=== PATIENT | female | born 1950 | race Caucasian/White ===

== ENCOUNTER 2020-03-24 13:48 | Emergency (ER) | payer OTHER, BC ==
--- OUTSIDE RECORDS SUMMARY | 2020-03-24 13:51 | XMS REPORT | Continuity of Care Document ---
:1950 Author Organization [employer] Care Team Providers Name Role Phone [employer] Unavailable Un available Problems Problem Status Onset Classification Date Comments Sourc e Date Reported Spinal stenosis, 02/10/20 06/20/2018 lumbar region 18 [place] without neurogenic claudication UNK Active 10/04/19 [facility] 18 [place] LUMBAR STENOSIS, Active 04/07/19 [facility] SPONYLOSIS, [address] [place] [address] RADICULOPAT [place] SPINAL STENOSIS Active 08/19/[place] [address] [place] [address] Spondylolisthesis, 06/20/2018 lumbar region [place] Essential (primary) 06/20/2018 hypertension [place] Hyperlipidemia, 06/20/2018 unspecified [place] Presence of 06/20/2018 unspecified [place] artificial knee joint Age-related 06/20/2018 osteoporosis [place] without current pathological fracture Postprocedural 06/20/2018 fever [place] Encounter for 06/20/2018 immunization [place] Gastro-esophageal 06/20/2018 [facility] reflux disease [place] and without esophagitis Sleep apnea, 06/20/2018 unspecified [place] Cataract (disorder) Resolved Problem 06/20/2018 [facility] Gastroesophageal Active Problem 06/20/2018 [facility] reflux disease Medic al (disorder) Center,[facility] Hyperlipidemia Active Problem 06/20/2018 [place] (disorder[facility] Hypertensive Active Problem 06/20/2018 [place] disorder, systemic M edical arterial (disorder) Center,[facility] Kidney stone Active Problem 06/20/2018 [place] (disorder[facility] Osteoporosis Active Problem 06/20/2018 [place] (disorder[facility] Sleep apnea Resolved Problem 06/20/2018 [place] [facility] SPONDYLOLISTHESIS, Active [facility] Herrera n RADICULOPATHY, Active [facility] CERVICAL [facility]ION Herm martin Medications Medication Details Route Status Patient Ordering Order Source Instructions Provider Date Acetaminophen 325 1-2 tab, PO, No Longer MG / Hydrocodone Q4-6H, PRN Active 2017 [facility] Bitartrate 10 MG Pain, X 5 day, Oral Tablet # 120 tab, 0 [[place] 10/325] Refill(s) Cyclobenzaprine 10 mg = 1 tab, No Longer hydrochloride 10 PO, TID, PRN Active 2017 [place] MG Oral Tablet for spasm, # 90 [Flexeril] tab, 0 Refill(s) Acetaminophen 325 Notes: Do not Inactive MG / Hydrocodone exceed 4gm/day 2017 [place] Bitartrate 10 MG of Oral Tablet acetaminophen. [[place] 10/325] (Same as: [place] 325/10) Morphine 2 mg, 1 mL, Inactive Route: IVP, 2017 [place] Drug form: SOLN, Q2H, Dosing Weight 84.091, kg, PRN Pain Score 7-10, Start date: 12/01/17 9:59:00 CDT, Duration: 30 day, Stop date: 12/31/17 9:58:00 CDT Fluoxetine Notes: (Same Inactive as: Prozac) 2017 [place] irbesartan Notes: (Same Inactive as:Avapro) 2017 [place] Tylenol Notes: Do not Inactive exceed 4 2017 [place] gm/day. (Same as: Tylenol) Tylenol Notes: Do not Inactive exceed 4 2017 [place] gm/day. (Same as: Tylenol) Omeprazole 20 mg, Route: Inactive PO, Drug form: 2017 [place] ECTAB, BID, Dosing Weight 84.091, kg, Start date: 11/30/17 17:00:00 CDT, Duration: 30 day, Stop date: 12/30/17 9:00:00 CDT Protonix Notes: Tablet No Longer should not be Active 2017 [place] chewed or crushed. (Same as: Protonix) Omeprazole 20 mg, Route: Inactive PO, Drug form: 2017 [place] ECTAB, BID, Dosing Weight 84.091, kg, Priority: NOW, Start date: 11/30/17 9:47:00 CDT, Duration: 30 day, Stop date: 12/30/17 9:00:00 CDT irbesartan 150 mg, Route: Inactive PO, Drug form: 2018 [place] TAB, Daily, Dosing Weight 84.091, kg, Priority: NOW, Start date: 11/30/17 9:45:00 CDT, Duration: 30 day, Stop date: 12/30/17 9:00:00 CDT atorvastatin Notes: (Same No Longer As: Lipitor) Active 2017 [place] clindamycin 600 mg, 50 mL, No Longer Route: IVPB, Active 2017 [place] Drug form: INJ, ABXQ8H, Dosing Weight 84.091, kg, Start date: 11/29/17 16:00:00 CDT, Duration: 1 day, Stop date: 11/30/17 8:00:00 CDT, ABX Indication: Surgical Prophylaxis Reglan 10 mg, Route: Inactive IV, ONCE, 2017 [place] Dosing Weight 84.091, kg, PRN Nausea, Start date: 11/29/17 13:03:00 CDT Clindamycin 600 mg, 50 mL, Inactive Route: IVPB, 2017 [place] Drug form: INJ, [id number], Dosing Weight 84.091, kg, Start date: 11/29/17 11:00:00 CDT, Duration: 1 day, Stop date: 11/30/17 3:00:00 CDT, ABX Indication: Surgical Prophylaxis Zofran Notes: (Same No Longer as: Zofran) Active 2017 [place] MEDICATION WASTE Product Size: 4 mg Product Wasted: ___ mg Acetaminophen Notes: Infuse Inactive over 15 minutes 2018 [place] Do not exceed 4gm/day of acetaminophen MEDICATION WASTE Product Size: 1000 mg Product Wasted: ___ mg Oxycodone Notes: (Same Inactive as: Roxicodone) 2018 [place] Flumazenil Notes: (Same Inactive as: Romazicon) 2018 [place] Naloxone Notes: Same as Inactive Narcan 2018 [place] Hydromorphone Notes: Same as: Inactive H Dilaudid 2018 [place] Fentanyl Notes: (Same Inactive as: Sublimaze) 2018 [place] Preservative free. Promethazine 6.25 mg, Route: Inactive IVPB, ONCE, 2018 [place] Dosing Weight 84.091, kg, PRN Nausea & Vomiting, Start date: 11/29/17 10:43:00 CDT 72 HR Scopolamine Notes: Change Inactive 0.0139 MG/HR patch every 72 2017 [facility] Transdermal Patch hours (Same as: Transderm-Scop) Meperidine Notes: (Same Inactive As: Demerol) 2018 [place] Ondansetron 4 mg, Route: Inactive IVP, ONCE, 2018 [place] Dosing Weight 84.091, kg, PRN Nausea & Vomiting, Start date: 11/29/17 10:43:00 CDT Diphenhydramine Notes: (Same Inactive as: Benadryl) 2017 [place] Albuterol 0.83 Notes: SEE RT Inactive MG/ML Inhalant DOCUMENTATION 2018 [place] Solution (Same as: Proventil) Morphine Notes: Dose: No Longer Delay: Active 2017 [place] Basal rate: 4hr limit: (Same as:Rapi-Ject) Naloxone Notes: Same as No Longer Narcan Active 2017 [place] glycopyrrolate Route: IV, Drug Inactive (ANES) form: INJ, 2017 [place] ONCE, Stop date: 11/29/17 10:32:00 CDT neostigmine Route: IV, Drug Inactive (ANES) form: INJ, 2017 [place] ONCE, Stop date: 11/29/17 10:32:00 CDT clindamycin Route: IV, Drug Inactive (ANES) form: INJ, 2017 [place] ONCE, Stop date: 11/29/17 8:52:00 CDT phenylephrine Route: IV, Drug Inactive H (ANES) form: INJ, 2017 [place] ONCE, Stop date: 11/29/17 8:32:00 CDT ePHEDrine (ANES) Route: IV, Drug Inactive form: INJ, 2017 [place] ONCE, Stop date: 11/29/17 8:32:00 CDT dexamethasone Route: IV, Drug Inactive H (ANES) form: INJ, 2017 [place] ONCE, Stop date: 11/29/17 8:27:00 CDT acetaminophen Route: IV, Drug Inactive H (ANES) form: INJ, 2017 [place] ONCE, Stop date: 11/29/17 8:27:00 CDT Calcium Chloride 1,000 mL, Rate: Inactive 0.0014 MEQ/ML / 25 ml/hr, 2017 [place] Potassium Infuse over: 40 Chloride 0.004 hr, Route: IV, MEQ/ML / Sodium Dosing Weight Chloride 0.103 84.091 kg, MEQ/ML / Sodium Total Volume: Lactate 0.028 1,000, Start MEQ/ML Injectable date: 11/29/17 Solution 8:25:00 CDT, Duration: 30 day, Stop date: 12/29/17 8:24:00 CDT, 1.97, m2 rocuronium (ANES) Route: IV, Drug Inactive 11/29 form: INJ, 2017 ONCE, Stop date: 11/29/17 8:22:00 CDT ondansetron Route: IV, Drug Inactive MH (ANES) form: INJ, 2017 [place] ONCE, Stop date: 11/29/17 8:17:00 CDT fentaNYL (ANES) Route: IV, Drug Inactive form: INJ, 2017 [place] ONCE, Stop date: 11/29/17 8:13:00 CDT succinylcholine Route: IV, Drug Inactive MH (ANES) form: INJ, 2017 [place] ONCE, Stop date: 11/29/17 8:13:00 CDT lidocaine (ANES) Route: IV, Drug Inactive form: INJ, 2017 [place] ONCE, Stop date: 11/29/17 8:13:00 CDT propofol (ANES) Route: IV, Drug Inactive form: INJ, 2017 [place] ONCE, Stop date: 11/29/17 8:13:00 CDT midazolam (ANES) Route: IV, Drug Inactive form: SOLN, 2018 [place] ONCE, Stop date: 11/29/17 8:02:00 CDT Lactated Ringers Route: IV, Inactive Injection IV Total Volume: 2018 [place] and (ANES) 1000 mL 1,000, Start date: 11/29/17 7:30:00 CDT, Stop date: 11/29/17 8:30:00 CDT ceFAZolin + Notes: (Same Inactive Sodium Chloride As: Ancef, 2017 [place] and 0.9% IV 100 mL Kefzol) MEDICATION WASTE Product Size: 1000 mg Product Wasted: ___ mg folic acid 0.8 mg 0.8 mg = 1 tab, Active oral tablet PO, Daily 2017 [place] atorvastatin 10 10 mg = 1 tab, Active H mg oral tablet PO, Daily 2017 [place] ketOROLAC 30 30 mg, Route: Inactive [place] mg/mL injectable IVP, Drug form: 2016 Medical solution INJ, ONCE, Center Dosing Weight 84.091, kg, 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, 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 Ondansetron Notes: (Same No Longer [place] as: Zofran) Active 2017 Medical MEDICATION Center WASTE Product Size: 4 mg Product Wasted: ___ mg Hydromorphone Notes: Same as: No Longer [place] Dilaudid Active [address] [place] [address] Notes: Infuse Inactive [place] over 15 minutes 2017 Medical Do not exceed Center 4gm/day of acetaminophen MEDICATION WASTE Product Size: 1000 mg Product Wasted: ___ mg vancomycin + 2001 mg: Inactive [place] sodium chloride infuse over 2.5 2017 Medical 0.9% INJ 250 mL hours Cent er MEDICATION WASTE Product Size: 1000 mg Product Wasted: ___ mg biotin PO, Daily, 0 Active [place] Refill(s) 2017 [facility] Flumazenil Notes: (Same No Longer [place] as: Romazicon) Active 2016 [facility] Naloxone Notes: Same as No Longer [place] Narcan Active 2016 [facility] Ondansetron Notes: (Same Inactive [place] as: Zofran) 2016 Medical MEDICATION Center WASTE Product Size: 4 mg Product Wasted: ___ mg Hydromorphone Notes: Same as: No Longer [facility] Dilaudid Active 2016 [facility] Center Morphine Notes: (Same No Longer [facility] as:MORPhine Active 2016 [facility]) Center Oxycodone Notes: (Same No Longer [place] as: Roxicodone) Active 2016 [facility] Vancomycin 2001 mg: Inactive [facility] infuse over 2.[address] [facility] biotin 0 Refill(s) Active [address] Paroxetine PO, 0 Refill(s) [place] 2016 [facility] Notes: Infuse No Longer [facility] over 15 minutes Active 2016 Medical Do not exceed Center 4gm/day of acetaminophen MEDICATION WASTE Product Size: 1000 mg Product Wasted: ___ mg vancomycin 2001 mg: No Longer [facility] infuse over 2.[address] [place] [address] Omeprazole 20 MG 20 mg = 1 tab, Active [facility] Enteric Coated PO, BID, # 30 2016 Med ical Tablet [Prilosec] tab, 0 Center Refill(s) Vitamin D3 0 Refill(s) Active [address] irbesartan 150 mg 150 mg = 1 tab, Active [facility] oral tablet PO, Daily, # 30 2016 Medi viviana tab, 0 Center Refill(s) simvastatin 40 mg 40 mg = 1 tab, Active [facility] oral tablet PO, Bedtime, # 2016 Medic al 90 tab, 1 Center Refill(s) FLUoxetine 10 mg 10 mg = 1 cap, Active [facility] oral capsule PO, Daily, # 30 2016 Med ical cap, 0 Center Refill(s) Allergies, Adverse Reactions, Alerts Substance Category Reaction Severity Reaction Status Date Comments S ource type Reported penicillins Assertion Drug Active allergy [place] Immunizations Immunization Date Site Status Last Updated Comments Sour ce Given influenza virus [facility], [facility] Delto[facility] inactivated Results Order Name Results Value Reference Date Interpretation Comments Jenny rce Range ELECTROLYTE AGAP 11.6 10.0 - 12/01 MH S 20.0 [place] ELECTROLYTE eGFR 59 12/01 Result MH S Comment: The [place] eGFR is calculated using the CKD-EPI formula. In most young, healthy individuals the eGFR will be >90 mL/min/1.73m2 . The eGFR declines with age. An eGFR of 60-89 may be normal in some populations, particularly the elderly, for whom the CKD-EPI formula has not been extensively validated. Use of the eGFR is not recommended in the following populations:< br/>
Angie viduals with unstable creatinine concentration s, including patients and those with serious co-morbid conditions.<b r/>
Patie nts with extremes in muscle mass or diet.

The data above are obtained from the National Kidney Disease Education Program (NKDEP) which additionally recommends that when the eGFR is used in patients with extremes of body mass index for purposes of drug dosing, the eGFR should be multiplied by the estimated BMI. ELECTROLYTE Chloride Lvl 105 95 - 109 12/01 MH S /2017 [place] ELECTROLYTE Potassium 4.6 3.5 - 5.1 12/01 MH S Lvl /2017 [place] ELECTROLYTE Glucose Lvl 104 70 - 99 12/01 MH S [place] ELECTROLYTE Sodium Lvl 140 135 - 145 12/01 MH S [place] ELECTROLYTE Creatinine 0.99 0.50 - 12/01 MH S Lvl 1.40 /2017 [place] ELECTROLYTE BUN 13 7 - 22 12/01 MH S [place] ELECTROLYTE Calcium Lvl 8.5 8.5 - 10.5 12/01 MH S /2017 [place] ELECTROLYTE CO2 28 24 - 32 12/01 MH S /2017 [place] HEMATOLOGY MCHC 33.6 32.0 - 12/01 MH 36.0 [place] HEMATOLOGY MCH 29.9 27.0 - 12/01 MH 31.0 [place] HEMATOLOGY RDW 13.5 11.5 - 12/01 MH 14.5 [place] HEMATOLOGY MPV 7.8 7.4 - 10.4 12/01 [place] HEMATOLOGY Platelet 245 133 - 450 12/01 [place] HEMATOLOGY Hct 30.9 36.0 - 12/01 MH 48.0 [place] HEMATOLOGY Hgb 10.4 12.0 - 12/01 MH 16.0 [place] HEMATOLOGY MCV 89.1 80.0 - 12/01 MH 98.0 [place] HEMATOLOGY RBC 3.46 4.20 - 12/01 MH 5.40 [place] HEMATOLOGY WBC 12.0 3.7 - 10.4 12/01 [place] HEMATOLOGY Monocytes # 0.9 0.0 - 0.8 12/01 [place] HEMATOLOGY Eosinophils 0.1 0.0 - 0.5 12/01 MH # [place] HEMATOLOGY Lymphocytes 1.1 1.0 - 5.5 12/01 [place] HEMATOLOGY Monocytes 7.3 2.0 - 12.0 12/01 [place] HEMATOLOGY Eosinophils 0.4 0.0 - 4.0 12/01 [place] HEMATOLOGY Basophils 0.4 0.0 - 1.0 12/01 [place] HEMATOLOGY Neutrophils 9.9 1.5 - 8.1 12/01 MH # [place] HEMATOLOGY Segs 82.9 45.0 - 12/01 MH 75.0 [place] HEMATOLOGY Lymphocytes 9.0 20.0 - 12/01 MH 40.0 [place] CHEM PANEL Calcium Lvl 8.7 8.5 - 10.5 11/30 [place] CHEM PANEL Sodium Lvl 138 135 - 145 11/30 [place] CHEM PANEL BUN 15 7 - 22 11/30 [place] CHEM PANEL Glucose Lvl 139 70 - 99 11/30 [place] CHEM PANEL CO2 27 24 - 32 11/30 [place] CHEM PANEL Potassium 4.1 3.5 - 5.1 11/30 MH Lvl [place] CHEM PANEL Chloride Lvl 103 95 - 109 11/30 [place] CHEM PANEL eGFR 56 11/30 Result Comment: The [place] eGFR is calculated using the CKD-EPI formula. In most young, healthy individuals the eGFR will be >90 mL/min/1.73m2 . The eGFR declines with age. An eGFR of 60-89 may be normal in some populations, particularly the elderly, for whom the CKD-EPI formula has not been extensively validated. Use of the eGFR is not recommended in the following populations:< br/>
Angie viduals with unstable creatinine concentration s, including patients and those with serious co-morbid conditions.<b r/>
Patie nts with extremes in muscle mass or diet.

The data above are obtained from the National Kidney Disease Education Program (NKDEP) which additionally recommends that when the eGFR is used in patients with extremes of body mass index for purposes of drug dosing, the eGFR should be multiplied by the estimated BMI. CHEM PANEL Creatinine 1.03 0.50 - 11/30 MH Lvl 1.40 [place] CHEM PANEL AGAP 12.1 10.0 - 11/30 MH 20.0 [place] HEMATOLOGY Lymphocytes 6.8 20.0 - 11/30 MH 40.0 [place] HEMATOLOGY Segs 86.8 45.0 - 11/30 MH 75.0 [place] HEMATOLOGY Monocytes # 0.9 0.0 - 0.8 11/30 [place] HEMATOLOGY Lymphocytes 1.0 1.0 - 5.5 11/30 MH # /2017 [place] HEMATOLOGY Neutrophils 12.7 1.5 - 8.1 11/30 MH # /2018 [place] HEMATOLOGY Monocytes 5.9 2.0 - 12.0 11/30 [place] HEMATOLOGY Basophils # 0.1 0.0 - 0.2 11/30 [place] HEMATOLOGY Eosinophils 0.1 0.0 - 4.0 11/30 [place] HEMATOLOGY Basophils 0.4 0.0 - 1.0 11/30 [place] HEMATOLOGY Hgb 10.6 12.0 - 11/30 MH 16.0 [place] HEMATOLOGY RBC 3.58 4.20 - 11/30 MH 5.40 [place] HEMATOLOGY MCH 29.7 27.0 - 11/30 MH 31.0 [place] HEMATOLOGY MCV 89.2 80.0 - 11/30 MH 98.0 [place] HEMATOLOGY WBC 14.6 3.7 - 10.4 11/30 [place] HEMATOLOGY Hct 31.9 36.0 - 11/30 MH 48.0 [place] HEMATOLOGY Platelet 293 133 - 450 11/30 [place] HEMATOLOGY RDW 13.5 11.5 - 11/30 MH 14.5 /2017 [place] HEMATOLOGY MCHC 33.3 32.0 - 11/30 MH 36.0 [place] HEMATOLOGY MPV 7.3 7.4 - 10.4 11/30 MH /2017 [place] ELECTROLYTE AGAP 10.4 10.0 - 11/24 MH S 20.0 [place] ELECTROLYTE eGFR 57 11/24 Result MH S Comment: The [place] eGFR is calculated using the CKD-EPI formula. In most young, healthy individuals the eGFR will be >90 mL/min/1.73m2 . The eGFR declines with age. An eGFR of 60-89 may be normal in some populations, particularly the elderly, for whom the CKD-EPI formula has not been extensively validated. Use of the eGFR is not recommended in the following populations:< br/>
Angie viduals with unstable creatinine concentration s, including patients and those with serious co-morbid conditions.<b r/>
Patie nts with extremes in muscle mass or diet.

The data above are obtained from the National Kidney Disease Education Program (NKDEP) which additionally recommends that when the eGFR is used in patients with extremes of body mass index for purposes of drug dosing, the eGFR should be multiplied by the estimated BMI. ELECTROLYTE BUN 19 7 - 22 11/24 MH S [place] ELECTROLYTE Glucose Lvl 104 70 - 99 11/24 MH S [place] ELECTROLYTE Potassium 4.4 3.5 - 5.1 11/24 MH S Lvl /2017 [place] ELECTROLYTE Creatinine 1.02 0.50 - 11/24 MH S Lvl 1.40 /2017 [place] ELECTROLYTE Sodium Lvl 143 135 - 145 11/24 MH S [place] ELECTROLYTE Chloride Lvl 107 95 - 109 11/24 MH S [place] ELECTROLYTE CO2 30 24 - 32 11/24 MH S [place] ELECTROLYTE Calcium Lvl 9.2 8.5 - 10.5 11/24 MH S [place] HEMATOLOGY MCH 29.9 27.0 - 11/24 MH 31.0 [place] HEMATOLOGY Hct 36.4 36.0 - 11/24 MH 48.0 [place] HEMATOLOGY MCV 87.3 80.0 - 11/24 MH 98.0 [place] HEMATOLOGY Hgb 12.5 12.0 - 11/24 MH 16.0 [place] HEMATOLOGY WBC 7.6 3.7 - 10.4 11/24 [place] HEMATOLOGY RBC 4.17 4.20 - 11/24 MH 5.40 /2017 [place] HEMATOLOGY MPV 7.5 7.4 - 10.4 11/24 [facility] Platelet 262 133 - 450 11/24 [facility] RDW 13.7 11.5 - 11/24 MH 14.5 [place] HEMATOLOGY MCHC 34.2 32.0 - 09 MH 36.0 [place] HEMATOLOGY Basophils # 0.1 0.0 - 0.2 11/24 [place] HEMATOLOGY Eosinophils 0.2 0.0 - 0.5 11/24 [place] HEMATOLOGY Monocytes # 0.5 0.0 - 0.8 11/24 [place] HEMATOLOGY Lymphocytes 1.4 1.0 - 5.5 11/24 [place] HEMATOLOGY Neutrophils 5.5 1.5 - 8.1 11/24 [place] HEMATOLOGY Eosinophils 3.0 0.0 - 4.0 11/24 [place] HEMATOLOGY Monocytes 6.4 2.0 - 12.0 11/24 [place] HEMATOLOGY Basophils 0.9 0.0 - 1.0 11/24 [place] HEMATOLOGY Segs 71.4 45.0 - 11/24 75.0 [place] HEMATOLOGY Lymphocytes 18.3 20.0 - 11/24 40.0 [place] ELECTROLYTE Potassium WB 4.4 3.5 - 5.1 04/30 [facility] [place] [facility] ELECTROLYTE AGAP 13.9 10.0 - 02 [place] S 20.0 [facility] ELECTROLYTE eGFR 61 04/21 [facility] S Comment: The Medical eGFR is Center calculated using the CKD-EPI formula. In most young, healthy individuals the eGFR will be >90 mL/min/1.73m2 . The eGFR declines with age. An eGFR of 60-89 may be normal in some populations, particularly the elderly, for whom the CKD-EPI formula has not been extensively validated. Use of the eGFR is not recommended in the following populations:< br/>
Angie viduals with unstable creatinine concentration s, including patients and those with serious co-morbid conditions.<b r/>
Patie nts with extremes in muscle mass or diet.

The data above are obtained from the National Kidney Disease Education Program (NKDEP) which additionally recommends that when the eGFR is used in patients with extremes of body mass index for purposes of drug dosing, the eGFR should be multiplied by the estimated BMI. ELECTROLYTE Glucose Lvl 96 70 - 99 04/21 [facility] ELECTROLYTE CO2 29 24 - 32 04/21 [facility] 2016 [facility] ELECTROLYTE BUN 17 7 - 22 04/21 [facility] ELECTROLYTE Creatinine 0.96 0.50 - 04/21 [facility] Lvl 1.40 [facility] ELECTROLYTE Sodium Lvl 145 135 - 145 04/21 [facility] [place] [facility] ELECTROLYTE Calcium Lvl 10.4 8.5 - 10.5 04/21 [place] [facility] ELECTROLYTE Potassium 5.9 3.5 - 5.1 04/21 [facility] Lvl [facility] ELECTROLYTE Chloride Lvl 108 95 - 109 04/21 [facility] HEMATOLOGY MPV 8.1 7.4 - 10.4 04/21 [facility] HEMATOLOGY MCH 28.9 27.0 - 02 [facility] 31.0 [facility] HEMATOLOGY MCV 88.6 80.0 - 04/21 [facility] 98.0 [facility] HEMATOLOGY MCHC 32.6 32.0 - 02 [facility] 36.0 [facility] HEMATOLOGY Platelet 304 133 - 450 04/21 [facility] HEMATOLOGY RDW 13.4 11.5 - 02 [facility] 14.5 [facility] HEMATOLOGY WBC 10.0 3.7 - 10.4 04/21 [facility] HEMATOLOGY Hgb 12.9 12.0 - 02 [facility] 16.0 [facility] HEMATOLOGY Hct 39.6 36.0 - 04/21 [facility] 48.0 [facility] HEMATOLOGY RBC 4.47 4.20 - 02 [facility] 5.40 [facility] HEMATOLOGY Monocytes # 0.6 0.0 - 0.8 04/21 [facility] HEMATOLOGY Eosinophils 0.3 0.0 - 0.5 04/21 [place] # /2016 [facility] HEMATOLOGY Basophils # 0.1 0.0 - 0.2 04/21 [place] [facility] HEMATOLOGY Lymphocytes 2.1 1.0 - 5.5 04/21 [place] # /2016 [facility] HEMATOLOGY Segs 68.7 45.0 - 04/21 [place] 75.0 [facility] HEMATOLOGY Lymphocytes 21.3 20.0 - 04/21 [place] 40.0 [facility] HEMATOLOGY Monocytes 6.2 2.0 - 12.0 04/21 [facility] HEMATOLOGY Eosinophils 3.1 0.0 - 4.0 04/21 a s /2016 [facility] HEMATOLOGY Segs-Bands # 6.8 1.5 - 8.1 04/21 [facility] HEMATOLOGY Basophils 0.7 0.0 - 1.0 04/21 [facility] BLOOD BANK ABO/Rh A POS 08/21 [facility] RESULTS /2015 [facility] BLOOD BANK Antibody Negative 08/21 [facility] RESULTS Scrn (08/22/15 7:30 AM) [facility] ELECTROLYTE AGAP 14.2 10.0 - 08/21 [place] S 20.0 [facility] ELECTROLYTE eGFR 64 08/21 Result Comment: The Medical eGFR is Center calculated using the CKD-EPI formula. In most young, healthy individuals the eGFR will be >90 mL/min/1.73m2 . The eGFR declines with age. An eGFR of 60-89 may be normal in some populations, particularly the elderly, for whom the CKD-EPI formula has not been extensively validated. Use of the eGFR is not recommended in the following populations:< br/>
Angie viduals with unstable creatinine concentration s, including patients and those with serious co-morbid conditions.<b r/>
Patie nts with extremes in muscle mass or diet.

The data above are obtained from the National Kidney Disease Education Program (NKDEP) which additionally recommends that when the eGFR is used in patients with extremes of body mass index for purposes of drug dosing, the eGFR should be multiplied by the estimated BMI. ELECTROLYTE Glucose Lvl 96 70 - 99 08/21 S [facility] ELECTROLYTE BUN 14 7 - 22 08/21 [place] [facility] ELECTROLYTE Chloride Lvl 107 95 - 109 08/21 [place] [facility] ELECTROLYTE Creatinine 0.94 0.50 - 08/21 [place] Lvl 1.40 /2015 [facility] ELECTROLYTE Sodium Lvl 144 135 - 145 08/21 [place] [facility] ELECTROLYTE Potassium 4.2 3.5 - 5.1 08/21 [place] Lvl /2015 [facility] ELECTROLYTE Calcium Lvl 9.9 8.5 - 10.5 08/21 [place] [facility] ELECTROLYTE CO2 27 24 - 32 08/21 S /2015 Medical Center HEMATOLOGY Basophils # 0.1 0.0 - 0.2 08/21 [facility] HEMATOLOGY Eosinophils 0.3 0.0 - 0.5 08/21 [place] [facility] HEMATOLOGY Segs 61.9 45.0 - 08/21 [place] 75.0 /2015 [facility] Center HEMATOLOGY Monocytes 6.9 2.0 - 12.0 08/21 [facility] HEMATOLOGY Lymphocytes 26.2 20.0 - 08/21 [place] 40.0 Medical [facility] HEMATOLOGY Monocytes # 0.5 0.0 - 0.8 [facility] Basophils 0.8 0.0 - 1.0 08/21 [facility] HEMATOLOGY Eosinophils 4.2 0.0 - 4.0 08/21 [facility] HEMATOLOGY Lymphocytes 1.8 1.0 - 5.5 08/21 [facility] HEMATOLOGY Segs-Bands # 4.2 1.5 - 8.1 08/21 [facility] HEMATOLOGY PTT 29.9 22.9 - 10 [place] 35.8 /2016 [facility] HEMATOLOGY PT 12.9 12.0 - 08/21 [place] 14.7 /2016 [facility] HEMATOLOGY INR 0.94 0.85 - 08/21 [place] 1.17 /2015 [facility] HEMATOLOGY Hgb 12.0 12.0 - 08/21 [place] 16.0 /2016 [facility] HEMATOLOGY RBC 4.11 4.20 - 08/21 [place] 5.40 /2016 [facility] HEMATOLOGY WBC 6.8 3.7 - 10.4 08/21 [facility] HEMATOLOGY MPV 7.5 7.4 - 10.4 08/21 [facility] HEMATOLOGY Platelet 242 133 - 450 08/21 [facility] HEMATOLOGY MCHC 32.4 32.0 - 08/21 [facility] 36.0 /2015 [facility] HEMATOLOGY RDW 13.1 11.5 - 08/21 [facility] 14.5 /2015 [facility] HEMATOLOGY Hct 37.0 36.0 - 08/21 [facility] 48.0 /2015 [facility] HEMATOLOGY MCH 29.2 27.0 - 08/21 [facility] 31.0 /2015 [facility] HEMATOLOGY MCV 90.0 80.0 - 08/21 [facility] 98.0 /2016 [facility] BLOOD BANK RBC product Product available 08/21 [facility] RESULTS (08/22/15 7:20 AM) [facility] Pathology Reports No Data Provided for This Section Diagnostic Reports No Data Provided for This Section Consultation Notes No Data Provided for This Section Discharge Summaries No Data Provided for This Section History and Physicals No Data Provided for This Section Vital Signs Vital Sign Value Date Comments Source Heart Rate 85 12/01/2017 [facility] Temperature Oral (F) 99.9 F 12/01/2017 [place] Systolic (mm Hg) 105 12/01/2017 [place] Diastolic (mm Hg) 65 12/01/2017 [place] Respitory Rate 16 12/01/2017 [place] Respitory Rate 18 [facility]/01[facility]2017 [facility] 77 12/01/2017 [place] Respitory Rate 16 12/01/2017 [place] Systolic (mm Hg) 119 12/01/2017 [place] Diastolic (mm Hg) 71 12/01/2017 [place] Temperature Oral (F) 98.8 F 12/01/2017 [place] Systolic (mm Hg) 114 12/01/2017 [place] Diastolic (mm Hg) 71 12/01/2017 [place] Heart Rate 74 12/01/2017 [facility] Temperature Oral (F) 98.9 F 12/01/2017 [place] Height 162.56 cm 11/24/2017 [facility] BMI Calculated 31.82 11/24/2017 [facility] Weight 84.091 11/24/2017 [facility] Systolic (mm Hg) 145 04/30/[facility] Diastolic (mm Hg) 72 04/30/2016 [facility] Respitory Rate 18 04/30/2016 [facility] [place] [facility] Respitory Rate 16 04/30/2016 [facility] Systolic (mm Hg) 131 04/30/2016 [facility] Me dical Center Diastolic (mm Hg) 59 04/30/2016 [facility] Systolic (mm Hg) 115 04/30/2016 [facility] dical Center Diastolic (mm Hg) 42 04/30/2016 [facility] Respitory Rate 14 04/30/2016 [facility] Heart Rate 72 04/30/2016 [facility] Heart Rate 70 04/21/2016 [facility] Height 162.56 cm 04/21/2016 [facility] BMI Calculated 31.82 04/21/2016 [facility] Weight 84.091 04/21/2016 [facility] Systolic (mm Hg) 119 08/22/2015 [facility] Me dical Center Diastolic (mm Hg) 60 08/22/2015 [facility] Respitory Rate 16 08/22/2015 [facility] Systolic (mm Hg) 129 08/22/2015 [facility] Center Diastolic (mm Hg) 60 08/22/2015 [facility] Respitory Rate 17 08/22/2015 [facility] Systolic (mm Hg) 101 08/22/2015 [facility] Me [facility]ical Center Diastolic (mm Hg) 55 08/22/2015 [facility] Respitory Rate 19 08/22/2015 [facility] viviana Center Heart Rate 97 08/22/2015 [facility] BMI Calculated 30.96 08/22/2015 [facility] Weight 81.818 08/22/2015 [place] [facility] Height 162.56 cm 08/22/2015 [place] [facility] Heart Rate 68 08/22/2015 [facility] BMI Calculated 30.96 08/21/2015 [facility] viv[facility] Height 162.56 cm 08/21/2015 [place] [facility] Weight 81.818 08/21/2015 [facility] Center Encounters Location Location Encounter Encounter Reason Attending ADM DC Stat us Source Details Type Number For Provider Date Date Visit [facility] Day [id number] [place] 08/21 08/22 [facility] /2015 [facility] [place] [id number] [place] 04/30 05/01 Nahomy Alvarez Surgery Francisco Javier /2016 [facility] [id number] Donnie 11/29 12/01 Antonio Lopez II /2017 [facility] Procedures Procedure Code Date Perfomer Comments Source Vaginal [id number] 1976 [facility] hysterectomy<sup>1</s 7 Med ical up> [place] Arthroscopic knee [id number] [facility] Breast reduction [id number] [facility] Carpal tunnel release [id number] [facility] Cataract surgery [id number] [facility] Cholecystectomy [id number] [facility] Cystoscopy [id number] [facility] Excision of synovial [id number] spine 2015 [facility] exas cyst<sup>2</sup> [facility] Exploration of [id number] removal of [facility] kidney<sup>3</sup> stone [facility] Injection of [id number] bilateral [facility] steroid<sup>4</sup> knees Medic [facility] Neck [id number] fusion [facility] repair<sup>5</sup> Tonsillectomy and [id number] [facility] adenoidectomy [facility] Total knee [id number] [facility] replacement Neck repair [id number] [facility] Assessment and Plan Assessment and Plan Date Source Extracted from:Title: Clinical Document 12/01/2017 [facility] Author: Billie Garvey MD Date: 12/01/17 Attending: Donnie Guy MD Service: Orthopedic Code status: None Specified=FULL CODE Reason for Admission: UNK Working DRG: Isolation: No Isolation/Standard Precautions Consulting Physicians: Cornelio Vazquez MD [facility]: Service: Medicine Allergies (1) Active Reaction penicillins None documented SUBJECTIVE: T-max of 100.3 in the past 24 hours. Did have a headache at that time. Now resolved. OBJECTIVE: Review of Systems: 10 Point review of systems performed negative as of above PE: GENERAL APPEARANCE: alert and cooperativ e, and appears to be in no acute distress. HEAD: normocephalic, atraumatic EYES: PERRL, EOMI. MOUTH: Oral mucosa appears moist NECK: Neck supple, non-tender CARDIAC: Normal S1 and S2. No murmurs heard. Normal rate and rhythm. LUNGS: Clear to auscultation without ral es, rhonchi, wheezing or diminished breath sounds. ABDOMEN: Positive bowel sounds. Soft, no ndistended, nontender. No guarding or rebound. EXTREMITIES: No lower extremity edema. Peripheral pulses int act. NEUROLOGICAL: CN II-XII intact. Strength and sensation symmetric and intact throughout. PSYCHIATRIC: Mood stable Date Wt(kg) Wt(lb) Ht(cm) Ht(in) Method 11/24 (initial) 84.09 185.00 Measured 11/24 162.56 64.00 Stated Vitals Tmp(F) Pulse BP RR SpO2 FIO2 12/01 07:16 98.8 77 119/71 16 96 --- 12/01 03:30 98.9 74 114/71 16 97 2.0L/m 11/30 23:15 99.7 81 102/60 16 94 --- 11/30 19:19 100.3 80 107/62 16 94 --- 11/30 15:50 98.9 80 109/67 16 95 --- 24 Hr Tmax: 100.3F (37.94c) at 11/30 19: 19 Vital Signs are the last 5 in the past 48 hours. Medications (8) Active Scheduled Meds (4): 12/01/17 FLUoxetine 10 mg PO Daily 11/30/17 atorvastatin 10 mg PO Daily 12/01/17 irbesartan 150 mg PO Daily 11/30/17 pantoprazole (Protonix) 40 mg PO Q12H Unscheduled Meds (1): 11/29/17 influenza virus vaccine, inacti vated (influenza virus vaccine, inactivated high-dose preservative-free intramuscular suspension) 0.5 mL IM ONCALL PRN Meds (2): 11/29/17 naloxone 0.04 mg IVP Q2MIN 11/29/17 ondansetron (Zofran) 4 mg IVP Q8H One Time Meds: None Continuous Infusions (1): 11/29/17 morphine Sulfate 30 mg (morphin e 1 mg/ml MOLD CLAMPER (30 mg/30 mL) INJ Syringe 30 mg) 30 mg Per MOLD CLAMPER Order as Directed Lines, Tubes, and Drains: 11/29/2017 10:33 Indwelling Urinary Cath eter: Urethral 16 [place] Indwelling/Continuous 11/29/2017 05:48 Peripheral Lines: Wrist Left 20 gauge Over the needle catheter I&O Record In Out Bal 11/30 24hr Tot 50 1800 -1750 11/29 24hr Tot 1458 1880 -422 24hr Labs 12/01 0322 Glucose Lvl 104 H BUN 13 Creatinine Lvl 0.99 Sodium Lvl 140 Potassium Lvl 4.6 Chloride Lvl 105 CO2 28 AGAP 11.6 Calcium Lvl 8.5 eGFR 59 WBC 12.0 H RBC 3.46 L Hgb 10.4 L Hct 30.9 L MCV 89.1 MCH 29.9 MCHC 33.6 RDW 13.5 Platelet 245 MPV 7.8 Segs 82.9 H Monocytes 7.3 Lymphocytes 9.0 L Eosinophils 0.4 Basophils 0.4 Segs-Bands # 9.9 H Lymphocytes # 1.1 Monocytes # 0.9 H Eosinophils # 0.1 11/30 1052 Glucose Lvl 139 H BUN 15 Creatinine Lvl 1.03 Sodium Lvl 138 Potassium Lvl 4.1 Chloride Lvl 103 CO2 27 AGAP 12.1 Calcium Lvl 8.7 eGFR 56 WBC 14.6 H RBC 3.58 L Hgb 10.6 L Hct 31.9 L MCV 89.2 MCH 29.7 MCHC 33.3 RDW 13.5 Platelet 293 MPV 7.3 L Segs 86.8 H Monocytes 5.9 Lymphocytes 6.8 L Eosinophils 0.1 Basophils 0.4 Segs-Bands # 12.7 H Lymphocytes # 1.0 Monocytes # 0.9 H Basophils # 0.1 ASSESSMENT and PLAN: Assessment: Spinal stenosis Status post L4-L5 transforaminal lumbar interbody fusion Hypertension Hyperlipidemia Low-grade fever Plan: Encourage incentive spirometry. No othe r focal signs of infection. Clinically doing well. Pain control per spine/orthopedic surgery. Medication reconciliation as above. Discontinue Emery catheter. Continue with physical therapy and Occupational Therapy. She has been weaned off nasal cannula. Tolerating room air well. DVT prophylaxis: Per spine surgery, on SCDs. Extracted from:Title: Consult Note Author: Billie Garvey MD Date: 11/29/17 Assessment: Spinal stenosis Status post L4-L5 transforaminal lumbar interbody fusion Hypertension Hyperlipidemia Plan: Patient currently doing well postop. Con tinue with MOLD CLAMPER morphine pump as per spine/orthopedic surgery. Will restart her antihypertensives andantilipid medicationsa s available. Physical therapy and Occupational Therap y evaluationonce okay with spine surgery. Wean off nasal cannula as tolerated. DVT prophylaxis: Per spine surgery Disposition:Likely 1-2 midnights Plan of Care No Data Provided for This Section Social History Social History Date Source Social History TypeResponse 11/29/2017 [facility] Employment/School Status: Retired. 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 Smoking Status Never smoker; Exposure to Tobacco Smoke None; Cigarette Smoking Last 365 Days No; Reg Smoking Cessation Counseling No entered on: 11/29/17 Social History TypeResponse 04/30/2016 [facility] Smoking Status Never smoker; Exposure to Tobacco Smoke None; Cigarette Smoking Last 365 Days No; Reg Smoking Cessation Counseling No Family History No Data Provided for This Section Advance Directives No Data Provided for This Section Functional Status No Data Provided for This Section
--- OUTSIDE RECORDS SUMMARY | 2020-03-24 13:53 | XMS REPORT | Continuity of Care Document ---
:1950 Author Organization Formerly [facility] t Address [address] [place] [address] Care Team Providers Name Role Phone Isak Lopez II Attending Clinician Peyman Mcintyre Attending Clinician Isak Lopez II Admitting Clinician Payers Payer Name Policy Type Policy Number Effective Date Expiration Date S ource Problems Condition Condition Condition Status Onset Resolution Last Treating Co mments Source Name Details Category Date Date Treatment Clinician Date UNK Diagnosis Active 2017-12-16 Mem oria 10-03 22:20:00 l UNK 00:00: [place] 00 Active 10/03/2017 [facility] [place] LUMBAR Diagnosis Active 2016-05-27 Mem oria STENOSIS, - 10:07:00 l SPONYLOSIS LUMBAR 00:00: Herm martin , STENOSIS, 00 RADICULOPA SPONYLOSIS T , RADICULOPA T Active 04/07/2016 [facility] SPINAL Diagnosis Active 2015-09-26 Mem oria STENOSIS 08-18 07:10:00 l SPINAL 00:00: [place] STENOSIS 00 Active 08/19/2015 [facility] Spondyloli Problem 2018-06-20 M emoria sthesis, 11:23:52 l lumbar [place] region Spondyloli sthesis, lumbar region 06/20/2018 [place] Essential Problem 2018-06-20 Md moria (primary) 11:23:52 l hypertensi Herrera n on Essential (primary) hypertensi on 06/20/2018 [facility] Hyperlipid Problem 2018-06-20 M emoria emia, 11:23:52 l unspecifie Herrera n d Hyperlipid emia, unspecifie d 06/20/2018 [facility] Presence Problem 2018-06-20 Mem oria of 11:23:52 l unspecifie Presence He rmann d of artificial unspecifie knee joint d artificial knee joint 06/20/2018 [facility] Age-relate Problem 2018-06-20 M emoria d 11:23:52 l osteoporos Herrera n is without Age-relate current d pathologic osteoporos al is without fracture current pathologic al fracture 06/20/2018 [facility] Postproced Problem 2018-06-20 M emoria ural fever 11:23:52 l [place] Postproced ural fever 06/20/2018 [facility] Encounter Problem 2018-06-20 Me moria for 11:23:52 l immunizati Herrera n on Encounter for immunizati on 06/20/2018 [facility] Gastro-eso Problem 2018-06-20 M emoria phageal 11:23:52 l reflux [place] disease Gastro-eso without phageal esophagiti reflux s disease without esophagiti s 06/20/2018 [facility] Sleep Problem 2018-06-20 Memor ia apnea, 11:23:52 l unspecifie Sleep [place] nn d apnea, unspecifie d 06/20/2018 [facility] Cataract Problem Resolve 2018-06-20 Me moria (disorder) d 11:23:52 l Cataract Herrera n (disorder) Resolved Problem 06/20/2018 [facility] Sleep Problem Resolve 2018-06-20 Dustin rocio apnea d 11:23:52 l (finding) Sleep Herrera n apnea (finding) Resolved Problem 06/20/2018 [facility] Gastroesop Problem Active 2018-06-20 M emoria hageal 11:23:52 l reflux [place] disease Gastroesop (disorder) hageal reflux disease (disorder) Active Problem 06/20/2018 [facility] Hyperlipid Problem Active 2018-06-20 M emoria emia 11:23:52 l (disorder) Herrera n Hyperlipid emia (disorder) Active Problem 06/20/2018 [facility] Hypertensi Problem Active 2018-06-20 M emoria ve 11:23:52 l disorder, [place] systemic Hypertensi arterial ve (disorder) disorder, systemic arterial (disorder) Active Problem 06/20/2018 [facility] Kidney Problem Active 2018-06-20 Memor ia stone 11:23:52 l (disorder) Kidney Herm martin stone (disorder) Active Problem 06/20/2018 [facility] Osteoporos Problem Active 2018-06-20 M emoria is 11:23:52 l (disorder) Herrera n Osteoporos is (disorder) Active Problem 06/20/2018 [facility] SPONDYLOLI Diagnosis Active 2017-12-16 Memoria STHESIS, 22:20:00 l LUMBAR [place] REGION SPONDYLOLI STHESIS, LUMBAR REGION Active [facility] RADICULOPA Diagnosis Active 2017-12-16 Memoria THY, 22:20:00 l CERVICAL [place] REGION RADICULOPA THY, CERVICAL REGION Active [facility] Spinal Problem 2017-032018-06-20 2018-06-20 M emoria stenosis, 04-11 11:23:52 11:23:52 l lumbar Spinal 05:52: [place] region stenosis, 05 without lumbar neurogenic region claudicati without on neurogenic claudicati on 02/09/2018 06/20/2018 [facility] Allergies, Adverse Reactions, Alerts Allergy Allergy Status Severity Reaction(s) Onset Inactive Treating Comm ents Source Name Type Date Date Clinician [place] DA Active [facility] Penic[facility] DA Active [place] [facility] penicill penicill Active [facility] [place] Social History Social Habit Start Date Stop Date Quantity Comments Source Social History 2017-11-29 2017-11-29 [facility] varun 19:14:54 19:14:54 Smoking Status Start Date Stop Date Source Social History [facility] Medications Ordered Filled Start Stop Current Ordering Indication Dosage Frequency Signature Comments Components Source Medication Medication Date Date Medication? Clinician (SIG) Name Name Acetaminoph No 1-2 tab, Me moria en 325 MG / 9-20 PO, Q4-6H, l Hydrocodone 18:39: PRN Pain, H ermann Bitartrate 00 X 5 day, # 10 MG Oral 120 tab, 0 Tablet Refill(s) [[place] 10/325] Cyclobenzap No 10 mg = 1 M emoria rine 9-20 tab, PO, l hydrochlori 18:39: TID, PRN He rmann de 10 MG 00 for spasm, Oral Tablet # 90 tab, [Flexeril] 0 Refill(s) Acetaminoph No Notes: Do M emoria en 325 MG / 9-20 not exceed l Hydrocodone 14:59: 4gm/day of Bitrate acetaminop 10 MG Oral hen. Tablet (Same as: [[place] 10/325] 325/10) Morphine No 2 mg, 1 Memori a 9-20 mL, Route: l 14:59: IVP, Drug form: SOLN, Q2H, Dosing Weight 84.091, kg, PRN Pain Score 7-10, Start date: 12/01/17 9:59:00 CDT, Duration: 30 day, Stop date: 12/31/17 9:58:00 CDT Fluoxetine No Notes: Memor ia 9-20 (Same as: l 14:00: Prozac) irbesartan No Notes: Memor ia 9-20 (Same l 14:00: as:Avapro) Tylenol No Notes: Do Memor ia 9-20 not exceed l 09:58: 4 gm/day. (Same as: Tylenol) Tylenol No Notes: Do Memor ia 9-20 not exceed l 01:10: 4 gm/day. (Same as: Tylenol) Omeprazole No 20 mg, Memor ia 9-19 Route: PO, l 22:00: Drug form: ECTAB, BID, Dosing Weight 84.091, kg, Start date: 11/30/17 17:00:00 CDT, Duration: 30 day, Stop date: 12/30/17 9:00:00 CDT Protonix 2018-0 No Notes: Memoria -19 Tablet l 16:00: should not be chewed or crushed. (Same as: Protonix) Omeprazole 2017-0 No 20 mg, Memor ia 11-30 Route: PO, l 14:47: Drug form: ECTAB, BID, Dosing Weight 84.091, kg, Priority: NOW, Start date: 11/30/17 9:47:00 CDT, Duration: 30 day, Stop date: 12/30/17 9:00:00 CDT irbesartan 2017-0 No 150 mg, Dustin rocio 11-30 Route: PO, l 14:45: Drug form: TAB, Daily, Dosing Weight 84.091, kg, Priority: NOW, Start date: 11/30/17 9:45:00 CDT, Duration: 30 day, Stop date: 12/30/17 9:00:00 CDT atorvastati 2017-0 No Notes: Dustin rocio n 11-30 (Same As: l 14:45: Lipitor) clindamycin 2017-0 No 600 mg, 50 Memoria 9-18 mL, Route: l 21:00: IVPB, Drug form: INJ, ABXQ8H, Dosing Weight 84.091, kg, Start date: 11/29/17 16:00:00 CDT, Duration: 1 day, Stop date: 11/30/17 8:00:00 CDT, ABX Indication : Surgical Prophylaxi s Reglan 2017-0 No 10 mg, Memoria 18 Route: IV, l 18:03: ONCE, Dosing Weight 84.091, kg, PRN Nausea, Start date: 11/29/17 13:03:00 CDT Clindamycin 2017-0 No 600 mg, 50 Memoria 9-18 mL, Route: l 16:00: IVPB, Drug form: INJ, ABXQ8H, Dosing Weight 84.091, kg, Start date: 11/29/17 11:00:00 CDT, Duration: 1 day, Stop date: 11/30/17 3:00:00 CDT, ABX Indication : Surgical Prophylaxi s Zofran 2017-0 No Notes: Memoria 9-18 (Same as: l 15:44: Zofran) MEDICATION WASTE Product Size: 4 mg Product Wasted: ___ mg Acetaminoph No Notes: Dustin rocio en 11-29 Infuse l 15:43: over 15 minutes Do not exceed 4gm/day of acetaminop hen MEDICATION WASTE Product Size: 1000 mg Product Wasted: ___ mg Oxycodone No Notes: Memori a 11-29 (Same as: l 15:43: Roxicodone ) Flumazenil No Notes: Memor ia 11-29 (Same as: l 15:43: Romazicon) Naloxone No Notes: Memoria 11-29 Same as l 15:43: Narcan Hydromorpho No Notes: Dustin rocio ne 11-29 Same as: l 15:43: Dilaudid Fentanyl No Notes: Memoria 11-29 (Same as: l 15:43: Sublimaze) Preservat addie free. Promethazin No 6.25 mg, Me moria e 11-29 Route: l 15:43: IVPB, ONCE, Dosing Weight 84.091, kg, PRN Nausea & Vomiting, Start date: 11/29/17 10:43:00 CDT 72 HR No Notes: Memoria Scopolamine 11-29 Change l 0.0139 15:43: patch [place] MG/HR 00 every 72 Transdermal hours Patch (Same as: Transderm- Scop) Meperidine No Notes: Memor ia 11-29 (Same As: l 15:43: Demerol) Ondansetron No 4 mg, Memor ia 11-29 Route: l 15:43: IVP, ONCE, Dosing Weight 84.091, kg, PRN Nausea & Vomiting, Start date: 11/29/17 10:43:00 CDT Diphenhydra No Notes: Dustin rocio mine 11-29 (Same as: l 15:43: Benadryl) Albuterol No Notes: SEE Me moria 0.83 MG/ML 11-29 RT l Inhalant 15:43: DOCUMENTAT Her hayward Solution 00 ION (Same as: Proventil) Morphine No Notes: Memoria 11-29 Dose: l 15:41: [place] 00 Delay: Basal rate: 4hr limit: (Same as:Cyndy rodriguez) Naloxone No Notes: Memoria 11-29 Same as l 15:41: Narcan glycopyrrol No Route: IV, Memoria ate (ANES) 11-29 Drug form: l 15:32: INJ, ONCE, Stop date: 11/29/17 10:32:00 CDT neostigmine No Route: IV, Memoria (ANES) 11-29 Drug form: l 15:32: INJ, ONCE, Stop date: 11/29/17 10:32:00 CDT clindamycin No Route: IV, Memoria (ANES) 11-29 Drug form: l 13:52: INJ, ONCE, Stop date: 11/29/17 8:52:00 CDT phenylephri No Route: IV, Memoria ne (ANES) 11-29 Drug form: l 13:32: INJ, ONCE, Stop date: 11/29/17 8:32:00 CDT ePHEDrine No Route: IV, Me moria (ANES) 11-29 Drug form: l 13:32: INJ, ONCE, Stop date: 11/29/17 8:32:00 CDT dexamethaso No Route: IV, Memoria ne (ANES) 11-29 Drug form: l 13:27: INJ, ONCE, Stop date: 11/29/17 8:27:00 CDT acetaminoph No Route: IV, Memoria en (ANES) 11-29 Drug form: l 13:27: INJ, ONCE, Stop date: 11/29/17 8:27:00 CDT Calcium No 1,000 mL, Memor ia Chloride 11-29 Rate: 25 l 0.0014 13:25: ml/hr, MEQ/ML / 00 Infuse Potassium over: 40 Chloride hr, Route: 0.004 IV, Dosing MEQ/ML / Weight Sodium 84.091 kg, Chloride Total 0.103 Volume: MEQ/ML / 1,000, Sodium Start Lactate date: 0.028 11/29/17 MEQ/ML 8:25:00 Injectable CDT, Solution Duration: 30 day, Stop date: 12/29/17 8:24:00 CDT, 1.97, m2 rocuronium 2017- No Route: IV, M emoria (ANES) 11-29 Drug form: l 13:22: INJ, ONCE, Stop date: 11/29/17 8:22:00 CDT ondansetron No Route: IV, Memoria (ANES) 11-29 Drug form: l 13:17: INJ, ONCE, Stop date: 11/29/17 8:17:00 CDT fentaNYL No Route: IV, Mem oria (ANES) 11-29 Drug form: l 13:13: INJ, ONCE, Stop date: 11/29/17 8:13:00 CDT succinylcho No Route: IV, Memoria line (ANES) 11-29 Drug form: l 13:13: INJ, ONCE, Stop date: 11/29/17 8:13:00 CDT lidocaine No Route: IV, Me moria (ANES) 11-29 Drug form: l 13:13: INJ, ONCE, Stop date: 11/29/17 8:13:00 CDT propofol No Route: IV, Mem oria (ANES) 11-29 Drug form: l 13:13: INJ, ONCE, Stop date: 11/29/17 8:13:00 CDT midazolam No Route: IV, Me moria (ANES) 11-29 Drug form: l 13:02: SOLN, Antonio 00 ONCE, Stop date: 11/29/17 8:02:00 CDT Lactated No Route: IV, Mem oria Ringers 11-29 Total l Injection 12:30: Volume: [place] nn IV (ANES) 00 1,000, 1000 mL Start date: 09/18/18 7:30:00 CDT, Stop date: 11/29/17 8:30:00 CDT ceFAZolin + No Notes: Dustin rocio Sodium -18 (Same As: l Chloride 12:30: Ancef, [place] 0.9% IV 100 00 Kefzol) mL MEDICATION WASTE Product Size: 1000 mg Product Wasted: ___ mg folic acid Yes 0.8 mg = 1 M emoria 0.8 mg oral 9-13 tab, PO, l tablet 15:18: Daily [place] 00 atorvastati Yes 10 mg = 1 M emoria n 10 mg 9-13 tab, PO, l oral tablet 15:17: Daily [place] nn 00 ketOROLAC No 30 mg, Memori a 30 mg/mL 17 Route: l injectable 18:14: IVP, Drug He rmann solution 00 form: INJ, ONCE, Dosing Weight 84.091, kg, Start date: 04/30/16 12:14:00 ARMATURE BANDER, Stop date: 04/30/16 12:14:00 ARMATURE BANDER Ondansetron No Notes: Dustin rocio 2-17 (Same as: l 17:44: Zofran) [place] 00 MEDICATION WASTE Product Size: 4 mg Product Wasted: ___ mg Hydromorpho No Notes: Dustin rocio ne 2-17 Same as: l 17:44: Dilaudid [place] 00 Ofirmev No Notes: Memoria 2-17 Infuse l 07:00: over 15 [place] 00 minutes Do not exceed 4gm/day of acetaminop hen MEDICATION WASTE Product Size: 1000 mg Product Wasted: ___ mg vancomycin No 2001 mg: Me moria + sodium 2-17 infuse l chloride 07:00: over 2.5 [place] nn 0.9% INJ 00 hours 250 mL MEDICATION WASTE Product Size: 1000 mg Product Wasted: ___ mg biotin Yes PO, Daily, Memor ia 2-08 0 l 16:01: Refill(s) [place] Flumazenil No Notes: Memor ia 6-10 (Same as: l 16:39: Romazicon) Naloxone No Notes: Memoria 6-10 Same as l 16:39: Narcan Ondansetron No Notes: Dustin rocio 6-10 (Same as: l 16:39: Zofran) MEDICATION WASTE Product Size: 4 mg Product Wasted: ___ mg Hydromorpho No Notes: Dustin rocio ne 6-10 Same as: l 16:39: Dilaudid Morphine No Notes: Memoria 6-10 (Same l 16:39: as:MORPhin e Sulfate) Oxycodone No Notes: Memori a 6-10 (Same as: l 16:39: Roxicodone ) Vancomycin Yes 2001 mg: Me moria 6-10 infuse l 14:14: over 2.5 [place] 00 hours biotin Yes 0 Memoria 6-10 Refill(s) l 13:12: [place] 00 Paroxetine Yes PO, 0 Memori a 6-10 Refill(s) l 13:11: [place] 00 Ofirmev No Notes: Memoria 6-10 Infuse l 09:00: over 15 [place] 00 minutes Do not exceed 4gm/day of acetaminop hen MEDICATION WASTE Product Size: 1000 mg Product Wasted: ___ mg vancomycin No 2001 mg: Me moria 6-10 infuse l 08:00: over 2.5 [place] 00 hours Omeprazole Yes 20 mg = 1 Me moria 20 MG 6-09 tab, PO, l Enteric 13:24: BID, # 30 [place] nn Coated 00 tab, 0 Tablet Refill(s) [Prilosec] Vitamin D3 Yes 0 Memoria 6-09 Refill(s) l 13:24: [place] 00 irbesartan Yes 150 mg = 1 M emoria 150 mg oral 6-09 tab, PO, l tablet 13:24: Daily, # [place] 00 30 tab, 0 Refill(s) simvastatin Yes 40 mg = 1 M emoria 40 mg oral 6-09 tab, PO, l tablet 13:24: Bedtime, # [place] nn 00 90 tab, 1 Refill(s) FLUoxetine 2016-0 Yes 10 mg = 1 Me moria 10 mg oral 08-20 cap, PO, l capsule 13:24: Daily, # Herrera n 00 30 cap, 0 Refill(s) Vital Signs Vital Name Observation Time Observation Value Comments Source Heart Rate 2017-12-01 16:48:00 [facility] [place] Temperature Oral (F) 2017-12-01 16:48:00 99.9 F [facility] [place] Systolic (mm Hg) 2017-12-01 16:48:00 Dustin rial [place] Diastolic (mm Hg) 2017-12-01 16:48:00 Mem orial [place] Respitory Rate 2017-12-01 16:48:00 Memori al [place] Respitory Rate 2017-12-01 16:31:00 Memori al [place] Heart Rate 2017-12-01 12:16:00 [facility] [place] Respitory Rate 2017-12-01 12:16:00 Memori al [place] Systolic (mm Hg) 2017-12-01 12:16:00 Dustin rial [place] Diastolic (mm Hg) 2017-12-01 12:16:00 Mem orial [place] Temperature Oral (F) 2017-12-01 12:16:00 98.8 F [facility] [place] Systolic (mm Hg) 2017-12-01 08:30:00 Dustin rial [place] Diastolic (mm Hg) 2017-12-01 08:30:00 Mem orial [place] Heart Rate 2017-12-01 08:30:00 [facility] [place] Temperature Oral (F) 2017-12-01 08:30:00 98.9 F [facility] [place] Height 2017-11-24 15:27:00 162.56 cm [facility] [place] BMI Calculated 2017-11-24 15:27:00 Memori al [place] Weight 2017-11-24 15:27:00 [facility] [place] Systolic (mm Hg) 2016-04-30 19:06:00 Dustin rial [place] Diastolic (mm Hg) 2016-04-30 19:06:00 Mem orial [place] Respitory Rate 2016-04-30 19:06:00 Memori al [place] Respitory Rate 2016-04-30 18:45:00 Memori al [place] Systolic (mm Hg) 2016-04-30 18:45:00 Dustin rial [place] Diastolic (mm Hg) 2016-04-30 18:45:00 Mem orial [place] Systolic (mm Hg) 2016-04-30 18:30:00 Dustin rial [place] Diastolic (mm Hg) 2016-04-30 18:30:00 Mem orial [place] Respitory Rate 2016-04-30 18:30:00 Memori al [place] Heart Rate 2016-04-30 12:04:00 [facility] [place] Heart Rate 2016-04-21 16:02:00 [facility] [place] Height 2016-04-21 16:02:00 162.56 cm [facility] [place] BMI Calculated 2016-04-21 16:02:00 Memori al [place] Weight 2016-04-21 16:02:00 [facility] [place] Systolic (mm Hg) 2015-08-22 17:34:00 Dustin rial [place] Diastolic (mm Hg) 2015-08-22 17:34:00 Mem orial [place] Respitory Rate 2015-08-22 17:34:00 Memori al [place] Systolic (mm Hg) 2015-08-22 17:00:00 Dustin rial [place] Diastolic (mm Hg) 2015-08-22 17:00:00 Mem orial [place] Respitory Rate 2015-08-22 17:00:00 Memori al [place] Systolic (mm Hg) 2015-08-22 16:45:00 Dustin rial [place] Diastolic (mm Hg) 2015-08-22 16:45:00 Mem orial [place] Respitory Rate 2015-08-22 16:45:00 Memori al [place] Heart Rate 2015-08-22 16:02:00 [facility] [place] BMI Calculated 2015-08-22 13:17:00 Memori al [place] Weight 2015-08-22 13:17:00 [facility] [place] Height 2015-08-22 13:17:00 162.56 cm [facility] [place] Heart Rate 2015-08-22 12:58:00 [facility] [place] BMI Calculated 2015-08-21 13:27:00 Memori al [place] Height 2015-08-21 13:27:00 162.56 cm [facility] [place] Weight 2015-08-21 13:27:00 [facility] [place] Procedures Procedure Date / Time Performing Clinician Source Performed Vaginal 2016-04-21 06:00:00 [facility] Her hayward hysterectomy<sup>1</sup> Arthroscopic knee procedure Dustin rial [place] Breast reduction [facility] Herrera n Carpal tunnel release [facility] Cystoscopy [facility] Excision [facility] syn[facility]<sup>2</sup> Exploration of [facility] kidney<sup>3</sup> Injection of [facility] steroid<sup>4</sup> Neck repair<sup>5</sup> [facility] adenoidectomy Total knee replacement [facility] Encounters Start End Encounter Admission Attending Care Care Encounter Source Date/Time Date/Time Type Type Clinicians Facility Department ID 2017-11-29 2017-12-01 Outpatient John [facility]SH[facility]E [facility] [id number] 05:05:00 15:15:00 Donnie Parisi 2016-04-30 2016-04-30 Outpatient Francisco Javier [facility] [id number] 05:15:00 23:59:00 Wisam Keenan 2015-08-22 2015-08-22 Outpatient Francisco Javier [place] [id number] 05:57:00 23:59:00 Wisam Morley 00 Results Test Description Test Time Test Comments Results Result Comments Source BASIC METABOLIC PANEL 2019-03-22 13:21:00 Test Item Value Reference Range Interpretation Comme nts SODIUM (test code = NA) 142 mmol/L 136-145 N POTASSIUM (test code = K) 4.7 mmol/L 3.5-5.1 N CHLORIDE (test code = CL) 105.0 mmol/L 98-107 N CARBON DIOXIDE (test code = 27.1 mmol/L 21-32 N CO2) GLUCOSE (test code = GLU) 84 mg/dL 70-110 N BLOOD UREA NITROGEN (test code 18 mg/dL 7-18 N = BUN) GLOMERULAR FILTRATION RATE 56.9 >60 U nit of measure: (test code = GFR) mL/min/1.7 3 [id number] Range:Healthy A dults >90 mL/min/1.73 m2 For Chronic Kidney Disease: Stage II Mi ld Decrease in GFR 60-9 0 Stage III Moderate Decrease in GFR 30-59 Stage IV Severe Decrease in GFR 15-29 Stage V Kidney Failure <15 CREATININE (test code = CREAT) 0.97 mg/dL 0.55-1.30 N CALCIUM (test code = CA) 9.4 mg/dL 8.2-10.1 N - XR KNEE 1 OR 2 V [id number] 06:21:00 Patient Name: MARISEL PEREZ Unit No: [id number] EXAMS: CPT CODE: [id number] XR KNEE 1 OR 2 [place] [id number] IMAGES PROVIDED: 2 FINDINGS: Postoperative changes from rightconstrained total knee arthoplasty demonstrated without evidence of immediate complication. Noacute fracture is visualized. IMPRESSION: Postoperative exam as above. Electronically Signed by Dianne Lopez on at 0621 Reported and signed by: Cade Lopez M.D. CC: Iona Page MD; Forrest Fields MD Technologist: BRUCE SHAFFER RT(R) Transcribed D/ (06) tMATT.[facility] NAME: MARISEL PEREZ [address] [address] PHYS: PATROLOGeovanny Iona Page : 1950 AGE: 68 SEX: F [place] [address] : Y.518 A PHONE #: [phone] EXAM DATE: 07/21/2018 STATUS: DIS IN FAX #: [phone] RAD #: D/C DT 07/22/2018 PAGE 1 Signed Report Patient Name: MARISEL PEREZ Unit No: [id number] EXAMS: CPT CODE: [id number] XR KNEE 1 OR 2 V RT [id number] <Continued> Orig Print D/T: S: 07/24/2018 (0624) [facility] NAME: MARISEL PEREZ [address] [facility] [address] PHYS: PATROLOGeovanny Iona Page : 1950 AGE: 68 SEX: F [place] [address] LOC: Y.518 A PHONE #: [phone] EXAM DATE: 07/21/2018 STATUS: DIS IN FAX #: [phone] RAD #: D/C DT 07/22/2018 PAGE 2 Signed ReportBASIC METABOLIC [id number] 07:26:00 Test Item Value Reference Range Interpretation Comments SODIUM (test code = 136 mmol/L 136-145 N NA) POTASSIUM (test code = 5.2 mmol/L 3.5-5.1 H K) CHLORIDE (test code = 101.0 mmol/L 98-107 N CL) CARBON DIOXIDE (test 26.8 mmol/L 21-32 N code = CO2) GLUCOSE (test code = 122 mg/dL 70-110 H GLU) BLOOD UREA NITROGEN 19 mg/dL 7-18 H (test code = BUN) GLOMERULAR FILTRATION 48.4 >60 Unit o f measure: RATE (test code = GFR) mL/mi n/1.73 [id number] Range:Healthy Adults >90 mL/min/1.73 m2 For Chronic Kidney Disease: St age II Mild Decrease in GFR 60-90 St age III Moderate Decrease in GFR 30-59 Stage IV Severe Decre ase in GFR 15- 29 Stage V Kidney Failure <15 CREATININE (test code 1.12 mg/dL 0.55-1.30 N = CREAT) CALCIUM (test code = 8.4 mg/dL 8.2-10.1 N CA) HGB [id number] 06:43:00 Test Item Value Reference Range Interpretation Comments HEMOGLOBIN (test code = HGB) 10.6 g/dL 12-16 L HEMATOCRIT (test code = HCT) 32.5 % 37-47 L - USG NDL PLACEMENT (Bxg/Asp)2018-07-04 15:29:00 Patient Name: MARISEL PEREZ Unit No: [id number] EXAMS: CPT CODE: [id number] USG NDL PLACEMENT (Bxg/Asp) 80262 INDICATION: Right knee pain. PROCEDURE: Ultrasound guided cryoneurolysis of the anterior femoral cutaneous nerve and the superior and inferior branches of the infrapatellar nerve FLEET MAINTENANCE MANAGER: Dr. Rider. MEDICATIONS: 1 % Lidocaine local anesthesia CONTRAST: None. COMPLICATION: None immediately evident. DESCRIPTION: After the procedure, including indication and potential complications had been discussed with the patient and questions answered, written informed consent wasobtained. The patient was then taken to the ultrasound suite and placed on the table in supine position where skin of the right knee was evaluated sonographically. The skin was marked using ultrasound guidance. The skin was then prepped and draped sterilely. A time out was performed. After achieving 1% Lidocaine local anesthesia, the Covera device, composed of three hollow closed-tip 27 gauge 6 mm needles, was introduced percutaneously at the target site as marked sonographically. At each target site, the Covera device was activated over a 60 second cycle, creating a cold zone at the target site. Following each cycle, the probewas removed and advanced to the next target site. No immediate complication were observed. The patient tolerated the procedure well and was subsequently discharged in stablecondition. Preprocedural pain level: 5/ 10 Postprocedural pain level: 10 IMPRESSION: Cryoneurolysis of the anterior femoral cutaneous nerve and the superior and inferior branches of the infrapatellar nerve as above. at 152 Reported and signed by: Wolf Nguyễn MD CC: Iona Page MD; Forrest Fields MD Technologist: KWAME ANTONY RDMS, RVT Transcribed D/ (4040) [email or web address] [facility] NAME: MARISEL PEREZ [address] [facility] [address] PHYS: PATROLO. Iona Page : 1950 AGE: 68 SEX: F [place] [address] LOC: Y.RAD PHONE #: [phone] EXAM DATE: 07/03/2018 STATUS: DEP CLI FAX#: [phone] RAD #: D/C DT PAGE 1Signed Report Patient Name: MARISEL PEREZ Unit No: [id number] EXAMS: CPT CODE: [id number] USG NDL PLACEMENT (Bxg/Asp) 31040 <Continued> Orig Print D/T: S: 07/04/2018 (5640) [facility] NAME: MARISEL PEREZ [address] [facility] [address] PHYS: PATROLO. - Iona Page : 1950 AGE: 68 SEX: F [place] [address] LOC: Y.RAD PHONE #: [phone] EXAM DATE: 07/03/2018 STATUS: DEP CLI FAX #: [phone] RAD #: D/C DT PAGE 2 Signed ReportGLYCOSYLATED HEMOGLOBIN (HA1C)2018-07-03 23:54:00 Test Item Value Reference Range Interpretation Comments GLYCOSYLATED 5.5 % 4.8-5.9 N Any condition t hat shortens HEMOGLOBIN (HA1C) erythocyte survival or (test code = GLYHGB) decreas esmean erythrocyte age (e.g., sheila very from acute blood los s,hemolytic anemai) will fa lsely lower HGBA1c resultsr egardless of the method used . HGBA1c results frompat ients with HbSS, HbCC and HbSc must be interpreted wit hcaution given the patho logical processes, incl uding anemia,increase d red cell turnover, trans fusion requirements, t hatadversely impact HGBA1c a s a marker of long-term glycemiccontrol . Alternative for ms of testing such as fructosaminesho uld be considered for these patients.DONE A T: [facility] [id number] [place] [address] URINALYSIS [id number] 23:13:00 Test Item Value Reference Range Interpretation Comments UA COLOR (test code = YELLOW YELLOW COLU) UA APPEARANCE (test CLEAR CLEAR code = APPU) UA GLUCOSE DIPSTICK NEGATIVE NEGATIVE Previous ly (test code = DGLUU) reported result: 1+ Edited by: SUSIECD on 07/03/18:694973 2313: GLU previously reported as: 1+ H UA BILIRUBIN DIPSTICK NEGATIVE NEGATIVE (test code = BILU) UA KETONE DIPSTICK NEGATIVE mg/dL NEG (test code = KETU) UA SPECIFIC GRAVITY <=1.005 1.003-1.035 (test code = SGU) UA BLOOD DIPSTICK NEGATIVE NEGATIVE (test code = EVA) UA PH DIPSTICK (test 6.5 >6.5 code = SYMONE) UA PROTEIN DIPSTICK NEGATIVE mg/dL NEG (test code = PROU) UA UROBILINIOGEN 0.2 mg/dL NORM DIPSTICK (test code = URO) UA NITRITE DIPSTICK NEGATIVE NEG (test code = LUCA) UA LEUKOCYTE ESTERASE NEGATIVE NEGATIVE DIPSTICK (test code = LEUU) UA WBC (test code = <5.0 /HPF 0-2 WBCU) UA RBC (test code = 0-2 /HPF 0-2 RBCU) UA EPITHELIAL CELLS FEW /HPF 0-2 (test code = EPIU) UA BACTERIA (test FEW /HPF NONE code = BACU) URINALYSIS [id number] 22:26:00 Test Item Value Reference Range Interpretation Comments UA COLOR (test code = COLU) YELLOW YELLOW UA APPEARANCE (test code = CLEAR CLEAR APPU) UA GLUCOSE DIPSTICK (test code 1+ NEGATIVE A = DGLUU) UA BILIRUBIN DIPSTICK (test NEGATIVE NEGATIVE code = BILU) UA KETONE DIPSTICK (test code NEGATIVE mg/dL NEG = KETU) UA SPECIFIC GRAVITY (test code <=1.005 1.003-1.035 = SGU) UA BLOOD DIPSTICK (test code = NEGATIVE NEGATIVE EVA) UA PH DIPSTICK (test code = 6.5 >6.5 SYMONE) UA PROTEIN DIPSTICK (test code NEGATIVE mg/dL NEG = PROU) UA UROBILINIOGEN DIPSTICK 0.2 mg/dL NORM (test code = URO) UA NITRITE DIPSTICK (test code NEGATIVE NEG = LUCA) UA LEUKOCYTE ESTERASE DIPSTICK NEGATIVE NEGATIVE (test code = LEUU) UA WBC (test code = WBCU) <5.0 /HPF 0-2 UA RBC (test code = RBCU) 0-2 /HPF 0-2 UA EPITHELIAL CELLS (test code FEW /HPF 0-2 = EPIU) UA BACTERIA (test code = BACU) FEW /HPF NONE COMPREHENSIVE METABOLIC [id number] 19:34:00 Test Item Value Reference Range Interpretation Comments SODIUM (test code = 141 mmol/L 136-145 N NA) POTASSIUM (test code = 4.7 mmol/L 3.5-5.1 N K) CHLORIDE (test code = 103.0 mmol/L 98-107 N CL) CARBON DIOXIDE (test 28.1 mmol/L 21-32 N code = CO2) GLUCOSE (test code = 86 mg/dL 70-110 N GLU) BLOOD UREA NITROGEN 16 mg/dL 7-18 N (test code = BUN) GLOMERULAR FILTRATION 57.8 >60 Unit o f measure: RATE (test code = GFR) mL/mi n/1.73 u3Izbyydzkl Range:Healthy Adults >90 mL/min/1.73 m2 For Chronic Kidney Disease: St age II Mild Decrease in GFR 60-90 St age III Moderate Decrease in GFR 30-59 Stage IV Severe Decre ase in GFR 15- 29 Stage V Kidney Failure <15 CREATININE (test code 0.96 mg/dL 0.55-1.30 N = CREAT) TOTAL PROTEIN (test 7.0 g/dL 6.4-8.2 N code = PROT) ALBUMIN (test code = 4.0 g/dL 3.4-5.0 N ALB) GLOBULIN (test code = 3.0 g/dL 2.2-4.2 N GLOB) ALBUMIN/GLOBULIN RATIO 1.3 0.7-2.0 N (test code = A/G) CALCIUM (test code = 9.2 mg/dL 8.2-10.1 N CA) BILIRUBIN TOTAL (test 0.44 mg/dL 0.2-1.00 N code = BILT) SGOT/AST (test code = 20.0 U/L 15-37 N AST) SGPT/ALT (test code = 17.0 U/L 12-78 N Please note new ALT) normal range. ALKALINE PHOSPHATASE 115 U/L 46-116 N TOTAL (test code = ALKP) PROTHROMBIN [id number] 18:02:00 Test Item Value Reference Range Interpretation Comments PROTHROMBIN TIME 10.8 secs 10.1-12.5 N PATIENT (test code = PTP) INTERNATIONAL NORMAL 0.96 <2.0 RECOMME NDED THERAPEUTIC RATIO (test code = RANGE FOR ORAL INR) ANTICOAGULANTTR EATMENT: CONDI TION INRProphylaxis of venous thrombos is in 2.0 - 3.0 high-risk medic al or surgical patientsTreatme nt of venous thrombos is 2.0 - 3.0Prevention o f embolism 2.0 - 3.0Prevention o f recurrent embol ism, or 3.0 - 4. 5 patients with mechanical pros thetic intravascular v campo IS PATIENT ON ANTICOAGULANTS ? NHas Lab been notified if Patient is on Heparin Drip? NOIf Yes, orderCBC, OCCULT BLOOD, PT every other day NTHROMBOPLASTIN TIME [id number] 18:02:00 Test Item Value Reference Range Interpretation Comments PTT ACTIVATED (test code = APTT) 35.4 secs 24.9-37.0 N IS PATIENT ON ANTICOAGULANTS ? SCas Lab been notified if Patient is on Heparin Drip? NOIf Yes, orderCBC, OCCULT BLOOD, PT every other day NCBC W/AUTO DIFF 2018-07-03 17:02:00 Test Item Value Reference Range Interpretation Comments WHITE BLOOD CELL (test code = WBC) 6.9 K/mm3 5.8-11.0 N RED BLOOD CELL (test code = RBC) 4.23 M/mm3 4.2-5.4 N HEMOGLOBIN (test code = HGB) 12.3 g/dL 12-16 N HEMATOCRIT (test code = HCT) 38.2 % 37-47 N MEAN CELL VOLUME (test code = MCV) 90 fL 80-98 N MEAN CELL HGB (test code = MCH) 29.1 pg 27-34 N MEAN CELL HGB CONCENTRATION (test 32.2 g/dL 30.8-34.1 N code = MCHC) RED CELL DISTRIBUTION WIDTH (test 14.0 % 11-16 N code = RDW) PLT (test code = PLT) 293 K/mm3 130-400 N MEAN PLATELET VOLUME (test code = 10.6 fL 8.9-12.1 N MPV) NEUTROPHIL % (test code = NT%) 66.2 % 45-70 N LYMPHOCYTE % (test code = LY%) 24.4 % 20-40 N MONOCYTE % (test code = MO%) 5.6 % 3-10 N EOSINOPHIL % (test code = EO%) 2.9 % 1-5 N BASOPHIL % (test code = BA%) 0.6 % 0.0-1.1 N NEUTROPHIL # (test code = NT#) 4.59 K/mm3 2.00-7.50 N LYMPHOCYTE # (test code = LY#) 1.69 K/mm3 1.50-4.00 N MONOCYTE # (test code = MO#) 0.39 K/mm3 0.2-0.8 N EOSINOPHIL # (test code = EO#) 0.20 K/mm3 0.04-0.4 N BASOPHIL # (test code = BA#) 0.04 K/mm3 0.02-0.10 N MANUAL DIFF REQUIRED (test code = NO MANUAL DIFF MDIFF) NUCLEATED RED BLOOD CELL (test 0 % 0-0 N code = NRBC) - XR FLUORO [id number] 10:36:00 Patient Name: MARISEL PEREZ Unit No: [id number] EXAMS: CPT CODE: [id number] XR FLUORO NDL 44409 FLUOROSCOPICALLY GUIDED ASPIRATION OF THE RIGHT KNEE COMMENT: After informed consent was obtained a needle was placed in the knee joint with fluoroscopic guidance. Its position was confirmed with an AP radiograph. 0.1 minutes of fluoroscopy time was utilized. 6 mL of blood-tinged fluid was aspirated and sent for analysis. No immediate complications were encountered. at 1036 Reported and signed by: Keith Harrison MD CC: Paul White Technologist: CARLOS LAMBERT, RT(R) Transcri bed D/ (1039) t.SDR.L [facility] NAME: MARISEL PEREZ [address] [facility] PHYS: [place] - Paul White : 1950 AGE: 68 SEX: F [place] [id number] LOC: Y.RAD PHONE #: [phone] EX AM DATE: 06/02/2018 STATUS: DEP CLI FAX #: [phone] RAD #: D/C DT PAGE 1 Signed Report Patient Name: MARISEL PEREZ Unit No: [id number] EXAMS: CPT CODE: [id number] XR FLUORO NDL 41749 <Continued> Orig Print D/T: S: 06/04/2018 (0744) [facility] NAME: MARISEL PEREZ [address] [facility] PHYS: Paul Bobby Shant Brittany : 1950 AGE: 68 SEX: F [place] [id number] LOC: Y.RAD PHONE #: [phone] EXAM DATE: 06/02/2018 STATUS: DEP CLI FAX #: [phone] RAD #: D/C DT PAGE [address] F[address] CE[id number] 13:36:00 Test Item Value Reference Range Interpretation Comments SYNOVIAL FLD XANTHOCHROMIC LT. YELLOW A COLOR (test code = COLSY) SYNOVIAL FLD CLOUDY CLEAR A APPEARANCE (test code = APPSY) SYNOVIAL FLD 2.0 mL VOLUME (test code = VOLSY) SYNOVIAL FLD WBC 709.000 /MM3 0-200 H (test code = WBCSY) SYNOVIAL FLD RBC 9000.000 /mm3 0-2 H NOTE: An automated (test code = method is now b eing RBCSY) used to determinesynovi al fluid WBC and RBC cou nts. The differential wi llstill be performed ma nually. SYNOVIAL FLD POLY 4 % 0-25 N (test code = POLYSY) SYNOVIAL FLD 77 % 0-78 N LYMPHOCYTE (test code = LYMPHSY) SYNOVIAL FLD 19 % 0-71 N MONOCYTE (test code = MONOSY) SPECIMEN COMMENT: ASPIRATED PER RIGHT KNEE CELLCOUNT SYNOVIAL FLD CELL [id number] 12:32:00 Test Item Value Reference Range Interpretation Comments SYNOVIAL FLD COLOR LT. YELLOW A (test code = COLSY) SYNOVIAL FLD CLEAR A APPEARANCE (test code = APPSY) SYNOVIAL FLD mL VOLUME (test code = VOLSY) SYNOVIAL FLD WBC 709.000 /MM3 0-200 H (test code = WBCSY) SYNOVIAL FLD RBC 9000.000 0-2 H NOTE: An a utomated (test code = /mm3 method is now b eing used RBCSY) to determinesyn ovial fluid WBC and R BC counts. The dif ferential willstill be pe rformed manually. SPECIMEN COMMENT: ASPIRATED PER RIGHT KNEE CELLCOUNT CBC W/AUTO [id number] 16:35:00 Test Item Value Reference Range Interpretation Comments WHITE BLOOD CELL (test code = WBC) 5.8 K/mm3 5.8-11.0 N RED BLOOD CELL (test code = RBC) 4.25 M/mm3 4.2-5.4 N HEMOGLOBIN (test code = HGB) 12.4 g/dL 12-16 N HEMATOCRIT (test code = HCT) 37.5 % 37-47 N MEAN CELL VOLUME (test code = MCV) 88 fL 80-98 N MEAN CELL HGB (test code = MCH) 29.2 pg 27-34 N MEAN CELL HGB CONCENTRATION (test 33.1 g/dL 30.8-34.1 N code = MCHC) RED CELL DISTRIBUTION WIDTH (test 13.2 % 11-16 N code = RDW) PLT (test code = PLT) 264 K/mm3 130-400 N MEAN PLATELET VOLUME (test code = 9.5 fL 8.9-12.1 N MPV) NEUTROPHIL % (test code = NT%) 72.0 % 45-70 H LYMPHOCYTE % (test code = LY%) 15.8 % 20-40 L MONOCYTE % (test code = MO%) 8.0 % 3-10 N EOSINOPHIL % (test code = EO%) 3.1 % 1-5 N BASOPHIL % (test code = BA%) 0.9 % 0.0-1.1 N NEUTROPHIL # (test code = NT#) 4.15 K/mm3 2.00-7.50 N LYMPHOCYTE # (test code = LY#) 0.91 K/mm3 1.50-4.00 L MONOCYTE # (test code = MO#) 0.46 K/mm3 0.2-0.8 N EOSINOPHIL # (test code = EO#) 0.18 K/mm3 0.04-0.4 N BASOPHIL # (test code = BA#) 0.05 K/mm3 0.02-0.10 N MANUAL DIFF REQUIRED (test code = NO MANUAL DIFF MDIFF) NUCLEATED RED BLOOD CELL (test 0 % 0-0 N code = NRBC) SED [id number] 16:35:00 Test Item Value Reference Range Interpretation Comments SED RATE (test code = SEDW) 10 mm/hr 0-20 N C REACTIVE [id number] 16:04:00 Test Item Value Reference Range Interpretation Comments C REACTIVE PROTEIN (test code = < 0.2 mg/dL <0.9 CRP) CBC W/AUTO [id number] 15:36:00 Test Item Value Reference Range Interpretation Comments WHITE BLOOD CELL (test code = WBC) 5.8 K/mm3 5.8-11.0 N RED BLOOD CELL (test code = RBC) 4.25 M/mm3 4.2-5.4 N HEMOGLOBIN (test code = HGB) 12.4 g/dL 12-16 N HEMATOCRIT (test code = HCT) 37.5 % 37-47 N MEAN CELL VOLUME (test code = MCV) 88 fL 80-98 N MEAN CELL HGB (test code = MCH) 29.2 pg 27-34 N MEAN CELL HGB CONCENTRATION (test 33.1 g/dL 30.8-34.1 N code = MCHC) RED CELL DISTRIBUTION WIDTH (test 13.2 % 11-16 N code = RDW) PLT (test code = PLT) 264 K/mm3 130-400 N MEAN PLATELET VOLUME (test code = 9.5 fL 8.9-12.1 N MPV) NEUTROPHIL % (test code = NT%) 72.0 % 45-70 H LYMPHOCYTE % (test code = LY%) 15.8 % 20-40 L MONOCYTE % (test code = MO%) 8.0 % 3-10 N EOSINOPHIL % (test code = EO%) 3.1 % 1-5 N BASOPHIL % (test code = BA%) 0.9 % 0.0-1.1 N NEUTROPHIL # (test code = NT#) 4.15 K/mm3 2.00-7.50 N LYMPHOCYTE # (test code = LY#) 0.91 K/mm3 1.50-4.00 L MONOCYTE # (test code = MO#) 0.46 K/mm3 0.2-0.8 N EOSINOPHIL # (test code = EO#) 0.18 K/mm3 0.04-0.4 N BASOPHIL # (test code = BA#) 0.05 K/mm3 0.02-0.10 N MANUAL DIFF REQUIRED (test code = NO MANUAL DIFF MDIFF) NUCLEATED RED BLOOD CELL (test 0 % 0-0 N code = NRBC) SED [id number] 15:36:00 Test Item Value Reference Range Interpretation Comments SED RATE (test code = SEDW) mm/hr 0-20 DGZUDRUYGQRD3727-90-06 08:22:0011.6[facility] KtbvmzwBSZOPWGFPGDJ7898-86-55 08:22:0059[facility] PoofualCRWSVMXOJNLK0153-88-48 08:22:59277Dsehqpkj [place] KVZEAYRRILVU7807-04-91 08:22:004.6[facility] SqgvgkrRTAOOUFLYJIV8718-31-49 08:22:96102Yjrcutcz SmznafuVHGQYHXMHSYL7577-11-92 08:22:35930Fexuqbao [place] WKOFHHNWUFXB6183-51-32 08:22:000.99[facility] SyyawkqXMGTGIEXFOBV1662-65-54 08:22:0013[facility] TlqekppPMLJEXEAEQUR8540-28-07 08:22:008.5[facility] [place] CWFFPNYLHNCO4547-90-72 08:22:0028[facility] GayrnnpKHWVHWOTIJ8178-49-10 08:22:00 33.6[facility] QvkrffoHFXYYKIPCH0119-64-35 08:22:00 Test Item Value Reference Range Interpretation Comments MCH (test code = MCH) 29.9 pg 27.0-31.0 [facility] TwcruupBVIEMGQAWV7424-61-08 08:22:0013.5[facility]annHEMATOLOGY 2017-12-01 08:22:007.8[facility] NahnwpiOEOCHQZELB2166-20-26 08:22:03096Ciiikcuf AbpjxgrASCJAUMFYF5678-60-29 08:22:0030.9[facility] BazcknyQVACTHDDUO0655-88-98 08:22:0010.4[facility] HuotvmoGYAFSPFCRP1082-87-54 08:22:0089.1[facility] LOILYCRMVO1078-47-52 08:22:003.46[facility] OxgzbeyKANYNWKIGV2203-77-77 08:22:00 12.0[facility] EfdukmaLZYLRFFKLE3113-24-01 08:22:000.9[facility]annHEMATOLOGY 2017-12-01 08:22:000.1[facility] WsefrixTQZPCYABJF8197-41-31 08:22:001.1[facility] QctqszhFWWEIMPAWC8691-59-90 08:22:007.3[facility] KedsvkfWWULPTERRH4905-33-56 08:22:000.4[facility] XfnemcuLEQUMOELYM6466-95-12 08:22:000.4[facility] [place] PXAFHBFVBQ8725-98-44 08:22:009.9[facility] VxwhoacDMZGOSMEMB9508-11-10 08:22:00 82.9[facility] YdohkloIKFAZLGOBN6941-55-74 08:22:009.0[facility] HermannCHEM PANEL 2017-11-30 15:52:008.7[facility] HermannCHEM OJVXW5681-16-42 15:52:42152Mklqqmyk HermannCHEM GQAIX0301-01-94 15:52:0015[facility] HermannCHEM KTMNW3389-00-91 15:52:97759Hsixxppe HermannCHEM FYJMT2869-01-04 15:52:0027[facility]annCHEM LFNFV3485-95-10 15:52:004.1[facility] HermannCHEM MKCLN0594-75-37 15:52:38005 [facility]annCHEM NENJP1946-12-32 15:52:0056[facility]annCHEM PANEL 2017-11-30 15:52:001.03[facility]annCHEM FNEAX5586-16-92 15:52:0012.1[facility] XstndthFAKQQDWUIB7993-49-50 15:52:006.8[facility] PtpiqmiLKJRKCGWAH4748-50-26 15:52:0086.8[facility] FatulmpQLCFNAALMM9584-24-19 15:52:000.9[facility] [place] CKEKMWPPDQ6786-30-17 15:52:001.0[facility] SrslezbKBFGBHUXFA3825-50-92 15:52:00 12.7[facility] FubttfeDJQAQMEBJH6354-75-64 15:52:005.9[facility]annHEMATOLOGY 2017-11-30 15:52:000.1[facility] NtfzlckCKNUYVGDUK8337-76-87 15:52:000.1[facility] FxvtlvrPNHSEVGLXF3050-58-98 15:52:000.4[facility] EzbwpidHJZQBCSVVB7922-95-85 15:52:0010.6[facility] TfxeomySXJQKIOGLJ1513-04-52 15:52:003.58[facility] IOIKDFWOMN3725-15-47 15:52:00 Test Item Value Reference Range Interpretation Comments MCH (test code = MCH) 29.7 pg 27.0-31.0 [facility] ZlywbtsWQXFOMUJAZ5664-27-57 15:52:0089.2[facility]annHEMATOLOGY 2017-11-30 15:52:0014.6[facility] QtfolhhAWNMBLXTRX0013-01-45 15:52:0031.9[facility] RlmzlkdDANISUMMKY2186-24-32 15:52:57684Jkvxsqxj FhswovcQBCJDETKZG5838-05-18 15:52:0013.5[facility] NyitpfiOKRVCJBNZY8952-69-89 15:52:0033.3[facility] [place] AVBZWDHNUT6408-24-26 15:52:007.3[facility] QvjemycIHAISSVZGURD1430-91-59 15:43:00 10.4[facility] BpynpdfMIWXNOERFXNU2455-32-30 15:43:0057[facility] [place] DEMNAKLXWHDA7255-12-64 15:43:0019[facility] MlhbkhuWWPZQHGTSFQY2112-11-25 15:43:00 104[facility] NtphpbfMTSEMDXXCBOW4724-23-71 15:43:004.4[facility] [place] SJRQMIASDWCD9380-46-23 15:43:001.02[facility] CiqttblWYKBYURCMXQM4859-14-53 15:43:17374Fhsvakzh OadranjBRKVBXIPVGHS5715-06-02 15:43:39933Afqvshae [place] BWFTVDYBPMXF6304-37-87 15:43:0030[facility] YgyacskCGSBHJAVGYHM0902-35-97 15:43:00 9.2[facility] BabfaqrVSSIXPRYZV6922-92-56 15:43:00 Test Item Value Reference Range Interpretation Comments MCH (test code = MCH) 29.9 pg 27.0-31.0 [facility] VnzorjmBQYDMAZUTP3569-66-78 15:43:0036.4[facility]annHEMATOLOGY 2017-11-24 15:43:0087.3[facility] GbwkldhLMWSCOJUIA6615-11-52 15:43:0012.5[facility] LzjaknyJPOHDXCWSX0639-86-71 15:43:007.6[facility] GiclowqOMWFHLORIO1881-75-10 15:43:004.17[facility] UrtmdktAHWCKJYPHU0722-61-70 15:43:007.5[facility] [place] PAEYPWMKCR1033-17-00 15:43:55820Wlyzosjp ZzpyixiOIVWQUCNTJ9434-67-68 15:43:00 13.7[facility] FhzwelqAYJHSTBCNV9571-62-68 15:43:0034.2[facility]annHEMATOLOGY 2017-11-24 15:43:000.1[facility] JqncqgxTZEBJIVIGJ0213-17-98 15:43:000.2[facility] KntlcvaMPNXCPVWQJ5778-98-37 15:43:000.5[facility] DwmyudjQJAUKWOCTV6752-58-75 15:43:001.4[facility] CawtexlFUDYHRKOLD2957-57-68 15:43:005.5[facility] [place] RIFQDPKPKF6363-66-59 15:43:003.0[facility] JfnsbgvKCMSTVORXB0155-26-66 15:43:006.4 [facility] HrzeratKTBHHWAZQD4124-00-27 15:43:000.9[facility]annHEMATOLOGY 2017-11-24 15:43:0071.4[facility] SpuahgcPKOKPJDEYO8502-75-73 15:43:0018.3[facility] XtjbdifQURORYWKWXLU8257-44-47 11:59:004.4[facility] AxbtsglHXEZWNBSYPTW6713-51-68 17:20:0013.9[facility] QecmkqyYLPXRQOSBRWV6497-43-87 17:20:0061[facility] JNDPMTUNZNIJ4965-79-28 17:20:0096[facility] KyveugpRGDQIHFDTMUV1188-72-88 17:20:00 29[facility] OqlwykcXZTSSHYVTQML1029-66-29 17:20:0017[facility] HermannELECTROLYTES 2016-04-21 17:20:000.96[facility] RdktuihXFSTEMARZHJR0477-92-38 17:20:55077 [facility] DuidoqjIHCXZOXCDKVX9865-73-16 17:20:0010.4[facility] HermannELECTROLYTES 2016-04-21 17:20:005.9[facility] WhsoamyDKKQFNLJKYIR8580-23-19 17:20:69353Aeqmcccp KaxebnyHZTGRGLDSD2414-43-96 17:20:008.1[facility] YrfkzimIYAVEIBFGM5769-64-04 17:20:00 Test Item Value Reference Range Interpretation Comments MCH (test code = MCH) 28.9 pg 27.0-31.0 [facility] KdwurefIAXQKDZRTQ0822-21-15 17:20:0088.6[facility]annHEMATOLOGY 2016-04-21 17:20:0032.6[facility] WayrdhwFRELKNXLLR9725-39-94 17:20:88118Uhncbmxc FvthmygQZCABSAKMG7739-02-91 17:20:0013.4[facility] JcvxcujMFDKOXRHKM2929-55-24 17:20:0010.0[facility] RpgzcwvLNMMBWBHTG4396-86-63 17:20:0012.9[facility] [place] GMAAUWEDRA4821-29-61 17:20:0039.6[facility] JfozsrbUQRKBAOADW7620-84-37 17:20:00 4.47[facility] OeasflyYXHUZDSRXN0623-08-85 17:20:000.6[facility]annHEMATOLOGY 2016-04-21 17:20:000.3[facility] CyzchiuOBWVZEDYTA5775-58-99 17:20:000.1[facility] DoifpjxAONXDQNEOY5374-14-24 17:20:002.1[facility] GymizorIGZAONHXVX7989-70-81 17:20:0068.7[facility] ExxfzcuQYDCZQKLJQ3504-23-37 17:20:0021.3[facility] DYILUOSMBO2635-82-49 17:20:006.2[facility] XyrqcuoUGLSFMQAXG8635-12-08 17:20:003.1 [facility] BfbejnwSJQPWVUATU2069-84-42 17:20:006.8[facility]annHEMATOLOGY 2016-04-21 17:20:000.7[facility]annBLOOD BANK CRAERYK1347-78-58 12:30:00 Negative (08/22/15 7:30 AM)[facility] OfmawmgMLJBQFRDJOUA3070-60-19 12:21:0014.2 [facility] YgunpglLNCHSMHTWWHE6248-84-80 12:21:0064[facility]annELECTROLYTES 2015-08-22 12:21:0096[facility] XuyfvsqBKQFZFKELKKP7439-59-95 12:21:0014[facility] GufpdhwEDWUOEESPMXF4184-87-28 12:21:91458Rvcnwlgq GolhtuhHHIDGQDHHBZH8139-52-92 12:21:000.94[facility] XkbvnvlWCFKBGERMYBC8991-24-79 12:21:54831Vlmwddtp [place] FAUZMIATZPLL3158-85-39 12:21:004.2[facility] MwtjnkqOEVVMENLEWUI2133-03-87 12:21:009.9[facility] KwmsldqOAUJKIRDMGWX5319-45-64 12:21:0027[facility] [place] FZZYKQXSNC8524-90-53 12:21:000.1[facility] IwrvvbuEMDIUZFGTO2177-03-63 12:21:000.3 [facility] GoxjwetZAYUJSRWWN7495-35-51 12:21:0061.9[facility] 2015-08-22 12:21:006.9[facility] QvznfhjTLHYJCOPAU7702-27-51 12:21:0026.2[facility] RqhidjaWKTQDKQJWB9483-82-69 12:21:000.5[facility] WvunpvnWVPAYDGSBK4560-21-68 12:21:000.8[facility] MasmslzKGLGJQHTEL1989-65-63 12:21:004.2[facility] EWZKSYECLV5793-70-05 12:21:001.8[facility] OvgdleeKKIULDROPV0388-13-16 12:21:004.2 [facility] NvtigusKNMAGPROUC4681-91-51 12:21:00 Test Item Value Reference Range Interpretation Comments PTT (test code = PTT) 29.9 s 22.9-35.8 [facility] UwmoatbHHVBPWZPTT6628-06-87 12:21:00 Test Item Value Reference Range Interpretation Comments PT (test code = PT) 12.9 s 12.0-14.7 [facility] GqrjysxAIFWTITGGT0733-32-51 12:21:000.94[facility] 2015-08-22 12:21:0012.0[facility] JbxhlqtXYAWIAYXVT9793-95-66 12:21:004.11[facility] CnopyaxDDOQSRZOTD6323-29-54 12:21:006.8[facility] ThsauczGBVKFECYIP0938-66-78 12:21:007.5[facility] VttvlhuFPLVOOTLZY2169-22-05 12:21:94686Fjjnwqpg [place] JSMUCYPZTM5694-52-78 12:21:0032.4[facility] PlmuniwVSVPPGNHNK4552-63-04 12:21:00 13.1[facility] NybmnawQSNSTHKQQN1597-46-00 12:21:0037.0[facility] 2015-08-22 12:21:00 Test Item Value Reference Range Interpretation Comments MCH (test code = MCH) 29.2 pg 27.0-31.0 [facility]IFEX6152-40-98 12:21:0090.0[facility] HVLWMAI9689-34-86 12:20:00Product available (08/22/15 7:20 AM)[facility]
--- NOTE | 2020-03-24 14:40 | RAD REPORT ---
EXAM DESCRIPTION: CT - Stone Protocol - 03/24/2020 2:26 pm CLINICAL HISTORY: Flank pain. FLANK PAIN COMPARISON: CT ABD PELVIS W WO CONTRAST dated 10/10/2009 TECHNIQUE: Axial images were obtained without oral or IV contrast. Lack of contrast limits solid org an and vascular assessment. The [id number]-yc-iaqx spans the entirety of the system partially obscuring uppermost abdomen and lung bases. Coronal reformatted images were obtained and reviewed. All CT scans are performed using dose optimization technique as appropriate and may include automated exposure control or mA/KV adjustment according to patient size. FINDINGS: The lower lung salgado are clear. Small hiatal hernia. Imaged portions of the liver and spleen show no suspicious findings on non-contrast imaging.Cholecyst ectomy clips. The pancreas and adrenal glands are normal. No pathologic lymphadenopathy in the abdome n or pelvis. Punctate calculi are present both kidney calices. Moderate right hydronephrosis and hydroureter is pr esent caused by 7 mm stone at the right UVJ. No bowel obstruction, free air, free fluid or abscess. Normal appendix noted.Sigmoid diverticulosis c efren without diverticulitis. Lumbar hardware is present. IMPRESSION: 7 mm stone right UVJ resulting in mild right hydronephrosis. Additional punctate calculi seen in both kidneys.
[2020-03-24 15:05] LABS: Urine Blood 1+ (NEG); Urine Glucose NEGATIVE (NEG); Urine Protein 1+ (NEG); Urine Specific Gravity 1.025 (1.005-1.030)
[2020-03-24] MEDS ORDERED: SMZ./TMP. 800/160 MG TABLET ONE (17:32)
[2020-03-24] MEDS ORDERED: ONDANSETRON 4 MG/2 ML VIAL ONE (17:33)
[2020-03-24] MEDS ORDERED: MORPHINE 4 MG/ML SYR ONE (17:33)
[2020-03-24] MEDS ORDERED: TAMSULOSIN 0.4 MG SR CAP ONE (17:34)
[2020-03-24] MEDS ORDERED: NA CHLORIDE 0.9% 500 ML ONE (17:34)
--- NOTE | 2020-03-24 18:40 | ER ---
Nurse's Notes [facility] Name: Jamie Lanza Age: 70 yrs Sex: Female : 1950 Arrival Date: 03/24/2020 Time: 13:50 Bed 30 Private MD: Diagnosis: 7 mm right renal calculus at the UPJ - improved Presentation: 03/24 13:59 Chief complaint: Patient states: Hx of Kidney stone. Since Tuesday, I've been battling [facility] with a kidney stone. R flank and R lower back pain. Denies fever. Coronavirus screen: Client denies travel out of the [place] in the last 14 days. At this time, the client does not indicate any symptoms associated with coronavirus-19. Ebola Screen: Patient negative for fever greater than or equal to 101.5 degrees Fahrenheit, and additional compatible Ebola Virus Disease symptoms Patient denies exposure to infectious person. Patient denies travel to an Ebola-affected area in the 21 days before illness onset. No symptoms or risks identified at this time. Initial Sepsis Screen: Does the patient meet any 2 criteria? No. Patient's initial sepsis screen is negative. Does the patient have a suspected source of infection? No. Patient's initial sepsis screen is negative. Risk Assessment: Do you want to hurt yourself or someone else? Patient reports no desire to harm self or others. Onset of symptoms was March 24, 2020. 13:59 Method Of Arrival: Ambulatory ca1 13:59 Acuity: THELMA 3 ca1 Historical: - Allergies: 14:03 PENICILLINS; ca1 - Home Meds: 14:03 irbesartan oral oral [Active]; Omeprazole Oral [Active]; atorvastatin oral oral ca1 [Active]; - PMHx: 14:03 Hypertension; High Cholesterol; Kidney stones; ca1 - PSHx: 14:03 Carpal Tunnel Repair; Knee surgery; Hysterectomy; ca1 - Immunization history:: Pneumococcal vaccine is up to date, Flu vaccine is up to date. - Social history:: Smoking status: Patient denies any tobacco usage or history of. Screenin:20 Abuse screen: Denies threats or abuse. Nutritional screening: No deficits noted. vg1 Tuberculosis screening: No symptoms or risk factors identified. Fall Risk None identified. Assessment: 17:20 General: Appears in no apparent distress. uncomfortable, Behavior is calm, cooperative. vg1 17:20 Pain: Complains of pain in right mid back and right flank to right groin. Pain vg1 currently is 7 out of 10 on a pain scale. Pain began Tuesday night. Neuro: Level of Consciousness is awake, alert, obeys commands, Oriented to person, place, time, situation. Cardiovascular: Patient's skin is warm and dry. Respiratory: Airway is patent Respiratory effort is even, unlabored, Respiratory pattern is regular, symmetrical. GI: Reports nausea, vomiting. : Denies burning with urination, urinary frequency. EENT: No signs and/or symptoms were reported regarding the EENT system. Derm: Skin is intact, is healthy with good turgor. Musculoskeletal: Circulation, motion, and sensation intact. 17:50 Reassessment: PO challenge complete. Patient states does not feel nauseous. vg1 18:30 Reassessment: Patient appears in no apparent distress at this time. Patient is alert, vg1 oriented x 3, equal unlabored respirations, skin warm/dry/pink. Patient denies pain at this time. Patient states feeling better. Vital Signs: 13:59 BP 143 / 69; Pulse 103; Resp 18 S; Temp 97.1(TE); Pulse Ox 97% on R/A; Weight 83.46 kg ca1 (R); Height 5 ft. 4 in. (162.56 cm) (R); Pain 4/10; 17:34 BP 148 / 73; Pulse 70; Resp 18; Pulse Ox 98% on R/A; vg1 18:30 BP 125 / 55; Pulse 70; Resp 16; Pulse Ox 100% on R/A; vg1 13:59 Body Mass Index 31.58 (83.46 kg, 162.56 cm) ca1 ED Course: 13:50 Patient arrived in ED. ds1 14:01 Triage completed. ca1 14:03 Arm band placed on right wrist. ca1 14:26 CT Stone Protocol In Process Unspecified. EDMS 16:41 Qasim Doan MD is Attending Physician. kdr 16:43 Yesi Fonseca, JAMES is Primary Nurse. vg1 17:10 Initial lab(s) drawn, by me, sent to lab. Inserted saline lock: 20 gauge in left jp3 antecubital area, using aseptic technique. Blood collected. 17:10 Patient maintains SpO2 saturation greater than 95% on room air. jp3 17:15 Bed in low position. Call light in reach. Side rails up X 1. Warm blanket given. Verbal jp3 reassurance given. Pulse ox on. NIBP on. 18:38 Flash Elias MD is Referral Physician. kdr 18:48 No provider procedures requiring assistance completed. vg1 18:52 IV discontinued, intact, bleeding controlled, No redness/swelling at site. Pressure vg1 dressing applied. Administered Medications: 17:25 Drug: NS 0.9% 500 ml Route: IV; Rate: bolus; Site: left antecubital; vg1 17:50 Follow up: IV Status: Completed infusion; IV Intake: 500ml vg1 17:25 Drug: morphine 4 mg Route: IVP; Site: left antecubital; vg1 17:50 Follow up: Response: Pain is decreased vg1 17:25 Drug: Zofran (Ondansetron) 4 mg Route: IVP; Site: left antecubital; vg1 17:50 Follow up: Response: Nausea is decreased vg1 17:25 Drug: Bactrim (160 mg-800 mg (DS) 1 tablet Route: PO; vg1 22:35 Follow up: Response: No adverse reaction vg1 17:25 Drug: Flomax 0.4 mg Route: PO; vg1 18:30 Follow up: Response: No adverse reaction vg1 Intake: 17:50 IV: 500ml; Total: 500ml. vg1 Outcome: 18:39 Discharge ordered by . kdr 18:53 Discharged to home ambulatory. vg1 18:53 Condition: stable 18:53 Discharge instructions given to patient, Instructed on discharge instructions, follow up and referral plans. medication usage, Demonstrated understanding of instructions, follow-up care, medications, Prescriptions given X 1. 18:54 Patient left the ED. vg1 Signatures: Dispatcher [employer] EDMS Qasim Doan MD MD kdr Sanford, Demi ds1 Evaristo Jones jp3 Briana Jones RN RN ca1 Yesi Fonseca RN RN vg1 Corrections: (The following items were deleted from the chart) 17:39 17:34 BP 148 / 73; Pulse 95bpm; Resp 18bpm; Pulse Ox 98% RA; vg1 vg1
--- NOTE | 2020-03-24 18:40 | EDPHYS ---
Physician Documentation [facility] Name: Jamie Lanza Age: 70 yrs Sex: Female : 1950 Arrival Date: 03/24/2020 Time: 13:50 Bed 30 Private MD: ED Physician Qasim Doan HPI: 03/24 17:05 This 70 yrs old Female presents to ER via Ambulatory with complaints of kdr Kidney Stone. 17:05 The patient complains of pain in the right flank and right mid back. To right flank and kdr RLQ. Onset: The symptoms/episode began/occurred The patient started to have pain on Tuesday and it has become progressively worse until today. Modifying factors: The symptoms are alleviated by nothing. the symptoms are aggravated by food/fluids. Associated signs and symptoms: Pertinent positives: nausea, vomiting. Severity of pain: At its worst the pain was moderate severe in the emergency department the pain is unchanged. The patient has experienced similar episodes in the past, a few times. The patient has not recently seen a physician. Historical: - Allergies: 14:03 PENICILLINS; ca1 - Home Meds: 14:03 irbesartan oral oral [Active]; Omeprazole Oral [Active]; atorvastatin oral oral ca1 [Active]; - PMHx: 14:03 Hypertension; High Cholesterol; Kidney stones; ca1 - PSHx: 14:03 Carpal Tunnel Repair; Knee surgery; Hysterectomy; ca1 - Immunization history:: Pneumococcal vaccine is up to date, Flu vaccine is up to date. - Social history:: Smoking status: Patient denies any tobacco usage or history of. ROS: 17:05 Constitutional: Negative for fever, chills, and weight loss, Eyes: Negative for injury, kdr pain, redness, and discharge, Neck: Negative for injury, pain, and swelling, Cardiovascular: Negative for chest pain, palpitations, and edema, Respiratory: Negative for shortness of breath, cough, wheezing, and pleuritic chest pain, Back: Negative for injury and pain, : Negative for injury, bleeding, discharge, and swelling, MS/Extremity: Negative for injury and deformity, Skin: Negative for injury, rash, and discoloration, Neuro: Negative for headache, weakness, numbness, tingling, and seizure activity. Psych: Negative for depression, anxiety, suicide ideation, homicidal ideation, and hallucinations, Allergy/Immunology: Negative for hives, rash, and allergies, Endocrine: Negative for neck swelling, polydipsia, polyuria, polyphagia, and marked weight changes, Hematologic/Lymphatic: Negative for swollen nodes, abnormal bleeding, and unusual bruising. 17:05 Abdomen/GI: Positive for abdominal pain, nausea and vomiting, Negative for diarrhea, constipation, abdominal cramps, abdominal distension, black/tarry stool, rectal pain, rectal bleeding. Exam: 17:05 Constitutional: This is a well developed, well nourished patient who is awake, alert, kdr and in no acute distress. Head/Face: Normocephalic, atraumatic. Eyes: Pupils equal round and reactive to light, extra-ocular motions intact. Lids and lashes normal. Conjunctiva and sclera are non-icteric and not injected. Cornea within normal limits. Periorbital areas with no swelling, redness, or edema. Neck: Trachea midline, no thyromegaly or masses palpated, and no cervical lymphadenopathy. Supple, full range of motion without nuchal rigidity, or vertebral point tenderness. No Meningismus. Chest/axilla: Normal chest wall appearance and motion. Nontender with no deformity. No lesions are appreciated. Cardiovascular: Regular rate and rhythm with a normal S1 and S2. No gallops, murmurs, or rubs. Normal PMI, no JVD. No pulse deficits. Respiratory: Lungs have equal breath sounds bilaterally, clear to auscultation and percussion. No rales, rhonchi or wheezes noted. No increased work of breathing, no retractions or nasal flaring. Abdomen/GI: Soft, non-tender, with normal bowel sounds. No distension or tympany. No guarding or rebound. No evidence of tenderness throughout. Skin: Warm, dry with normal turgor. Normal color with no rashes, no lesions, and no evidence of cellulitis. MS/ Extremity: Pulses equal, no cyanosis. Neurovascular intact. Full, normal range of motion. Neuro: Awake and alert, GCS 15, oriented to person, place, time, and situation. Cranial nerves II-XII grossly intact. Motor strength 5/5 in all extremities. Sensory grossly intact. Cerebellar exam normal. Normal gait. Psych: Awake, alert, with orientation to person, place and time. Behavior, mood, and affect are within normal limits. 17:05 Back: pain, that is very mild, ROM is normal, normal spinal alignment noted, CVA tenderness, that is mild, is noted on the right. Vital Signs: 13:59 BP 143 / 69; Pulse 103; Resp 18 S; Temp 97.1(TE); Pulse Ox 97% on R/A; Weight 83.46 kg ca1 (R); Height 5 ft. 4 in. (162.56 cm) (R); Pain 4/10; 17:34 BP 148 / 73; Pulse 70; Resp 18; Pulse Ox 98% on R/A; vg1 18:30 BP 125 / 55; Pulse 70; Resp 16; Pulse Ox 100% on R/A; vg1 13:59 Body Mass Index 31.58 (83.46 kg, 162.56 cm) ca1 MDM: 17:05 Data reviewed: vital signs, nurses notes, lab test result(s), radiologic studies. kdr Counseling: I had a detailed discussion with the patient and/or guardian regarding: the historical points, exam findings, and any diagnostic results supporting the discharge/admit diagnosis, lab results, radiology results, the need for outpatient follow up. 18:39 Patient medically screened. kdr 18:41 Special discussion: Based on the patient's Hx, exam, and Dx evaluation, there is no kdr indication for emergent surgery or inpatient Tx. It is understood by the patient/guardian that if the Sx's persist or worsen they need to return immediately for re-evaluation. I discussed with the patient/guardian in detail that at this point there is no indication for admission to the hospital. It is understood, however, that if the symptoms persist or worsen the patient needs to return immediately for re-evaluation. 03/24 14:45 Order name: Urine Dipstick--Ancillary (enter results); Complete Time: 15:25 bd 03/24 14:16 Order name: CT Stone Protocol; Complete Time: 15:25 kb 03/24 14:22 Order name: Urine Dipstick-Ancillary (obtain specimen); Complete Time: 14:22 ca1 03/24 16:49 Order name: PO challenge; Complete Time: 17:49 kdr Administered Medications: 17:25 Drug: NS 0.9% 500 ml Route: IV; Rate: bolus; Site: left antecubital; vg1 17:50 Follow up: IV Status: Completed infusion; IV Intake: 500ml vg1 17:25 Drug: morphine 4 mg Route: IVP; Site: left antecubital; vg1 17:50 Follow up: Response: Pain is decreased vg1 17:25 Drug: Zofran (Ondansetron) 4 mg Route: IVP; Site: left antecubital; vg1 17:50 Follow up: Response: Nausea is decreased vg1 17:25 Drug: Bactrim (160 mg-800 mg (DS) 1 tablet Route: PO; vg1 22:35 Follow up: Response: No adverse reaction vg1 17:25 Drug: Flomax 0.4 mg Route: PO; vg1 18:30 Follow up: Response: No adverse reaction vg1 Disposition: 03/24/20 18:39 Discharged to Home. Impression: 7 mm right renal calculus at the UPJ - improved. - Condition is Stable. - Discharge Instructions: Kidney Stones, [id number]. - Prescriptions for Zofran 4 mg Oral Tablet - take 1 tablet by ORAL route every 4-6 hours As needed; 12 tablet. - Medication Reconciliation Form, Thank You Letter form. - Follow up: Private Physician; When: 2 - 3 days; Reason: If symptoms return, Further diagnostic work-up, Recheck today's complaints, Continuance of care, Re-evaluation by your physician. Follow up: Flash Elias MD; When: 2 - 3 days; Reason: If symptoms return, Further diagnostic work-up, Recheck today's complaints, Continuance of care, Re-evaluation by your physician. - Problem is an acute exacerbation. - Symptoms have improved. Signatures: Dispatcher [employer] EDNC Nita Cunningham, POSITION CLASSIFIER-C POSITION CLASSIFIER-Ckb Qasim Doan MD MD kdr Acob, Cheryl, RN RN ca1 Yesi Fonseca RN RN vg1 Corrections: (The following items were deleted from the chart) 18:54 18:39 03/24/2020 18:39 Discharged to Home. Impression: 7 mm right renal calculus at the vg1 UPJ - improved. Condition is Stable. Forms are Medication Reconciliation Form, Thank You Letter, Antibiotic Education, Prescription Opioid Use. Follow up: Private Physician; When: 2 - 3 days; Reason: If symptoms return, Further diagnostic work-up, Recheck today's complaints, Continuance of care, Re-evaluation by your physician. Follow up: Flash Elias; When: 2 - 3 days; Reason: If symptoms return, Further diagnostic work-up, Recheck today's complaints, Continuance of care, Re-evaluation by your physician. Problem is an acute exacerbation. Symptoms have improved. kdr
[2020-03-24 19:01] VITALS: TEMP 97.1
[2020-03-24 19:04] VITALS: BP 125/55; O2SAT 100
== END 2020-03-24 18:54 | disposition home or self-care (01) ==
LOC: ER 13:48
DX: N13.2 Hydronephrosis with renal and ureteral calculous obstruction (principal); I10 Essential (primary) hypertension; E78.00 Pure hypercholesterolemia, unspecified; Z87.442 Personal history of urinary calculi
CPT/HCPCS: 81003; 76377; 74176; 96375; 96374; 99284; J7040; J2405